=== PATIENT | male | born 1955 | race Hispanic/Latino ===

== ENCOUNTER 2020-02-20 | Emergency (ER) | payer SELFPAY ==
--- NOTE | 2020-02-20 19:29 | EDPHYS ---
Physician Documentation [facility] Name: Darrin Whiting Age: 64 yrs Sex: Male : 1955 Arrival Date: 02/20/2020 Time: 16:20 Bed Waiting Private MD: ED Physician Kalpesh Heck HPI: 02/19 19:33 This 64 yrs old Male presents to ER via Ambulatory with complaints of Ear Pain.kb 19:33 The patient presents with drainage, that is bloody, pain. The complaints affect the kb right ear. Onset: The symptoms/episode began/occurred 3 day(s) ago. Modifying factors: The symptoms are alleviated by nothing, the symptoms are aggravated by nothing. Associated signs and symptoms: The patient has no apparent associated signs or symptoms. Severity of symptoms: At their worst the symptoms were moderate in the emergency department the symptoms are unchanged. The patient has not experienced similar symptoms in the past. The patient has not recently seen a physician. Historical: - Allergies: 16:37 No Known Allergies; ss - PSHx: 16:37 right leg; ss - Social history:: Smoking status: Patient denies any tobacco usage or history of. ROS: 19:31 Constitutional: Negative for fever, chills, and weight loss, Cardiovascular: Negative kb for chest pain, palpitations, and edema, Respiratory: Negative for shortness of breath, cough, wheezing, and pleuritic chest pain, Abdomen/GI: Negative for abdominal pain, nausea, vomiting, diarrhea, and constipation, MS/Extremity: Negative for injury and deformity, Skin: Negative for injury, rash, and discoloration, Neuro: Negative for headache, weakness, numbness, tingling, and seizure. 19:31 ENT: Positive for drainage from ear(s), ear pain. Exam: 19:31 Constitutional: This is a well developed, well nourished patient who is awake, alert, kb and in no acute distress. Head/Face: Normocephalic, atraumatic. Chest/axilla: Normal chest wall appearance and motion. Nontender with no deformity. No lesions are appreciated. Cardiovascular: Regular rate and rhythm with a normal S1 and S2. No gallops, murmurs, or rubs. Normal PMI, no JVD. No pulse deficits. Respiratory: Lungs have equal breath sounds bilaterally, clear to auscultation and percussion. No rales, rhonchi or wheezes noted. No increased work of breathing, no retractions or nasal flaring. Abdomen/GI: Soft, non-tender, with normal bowel sounds. No distension or tympany. No guarding or rebound. No evidence of tenderness throughout. Skin: Warm, dry with normal turgor. Normal color with no rashes, no lesions, and no evidence of cellulitis. MS/ Extremity: Pulses equal, no cyanosis. Neurovascular intact. Full, normal range of motion. Neuro: Awake and alert, GCS 15, oriented to person, place, time, and situation. Cranial nerves II-XII grossly intact. Motor strength 5/5 in all extremities. Sensory grossly intact. Cerebellar exam normal. Normal gait. 19:31 ENT: External ear(s): are unremarkable, Ear canal(s): bloody discharge, that is minimal, in the right canal, erythema, that is moderate, of the right canal, swelling, that is moderate, of the right canal, TM's: not visable, because of blood. Vital Signs: 16:35 BP 165 / 97; Pulse 73; Resp 16; Temp 99.1(TE); Pulse Ox 99% on R/A; Weight 83.91 kg; ss Height 6 ft. 0 in. (185 cm); Pain 7/10; 16:35 Body Mass Index 24.52 (83.91 kg, 185 cm) ss MDM: 19:27 Patient medically screened. kb 19:31 Data reviewed: vital signs, nurses notes. Data interpreted: Pulse oximetry: on room air kb is 99 %. Interpretation: normal. Counseling: I had a detailed discussion with the patient and/or guardian regarding: the historical points, exam findings, and any diagnostic results supporting the discharge/admit diagnosis, the need for outpatient follow up, an ENT specialist, a family practitioner, to return to the emergency department if symptoms worsen or persist or if there are any questions or concerns that arise at home. Administered Medications: No medications were administered Disposition: 02/20 07:01 Co-signature as Attending Physician, Kalpesh Heck MD. rn Disposition: 02/20/20 19:27 Discharged to Home. Impression: Otitis media, unspecified, right ear, Other otitis externa, right ear. - Condition is Stable. - Discharge Instructions: Otitis Externa, Vysk-[id number], Otitis Media, Adult, [id number]-[id number], Ear Drops, Adult, [id number]-dz-Ikbh. - Prescriptions for Amoxicillin 875 mg Oral Tablet - take 1 tablet by ORAL route every 12 hours for 10 days; 20 tablet. Ciprodex 0.3- 0.1 % Otic Drops, Suspension - instill 4 drop by OTIC route every 12 hours for 7 days , for ears ONLY; 1 Container. - Medication Reconciliation Form, Thank You Letter, Antibiotic Education, Prescription Opioid Use form. - Follow up: Emergency Department; When: As needed; Reason: Worsening of condition. Follow up: Private Physician; When: 2 - 3 days; Reason: Recheck today's complaints, Continuance of care, Re-evaluation by your physician. Signatures: Myrna Mckeon, MELT ROOM OPERATOR-C MELT ROOM OPERATOR-CkKalpesh Vance MD MD rn SmirchSuzanne RN RN ss Nancy Jaime RN RN lp1 Corrections: (The following items were deleted from the chart) 02/19 19:37 19:27 02/20/2020 19:27 Discharged to Home. Impression: Otitis media, unspecified, right lp1 ear; Other otitis externa, right ear. Condition is Stable. Forms are Medication Reconciliation Form, Thank You Letter, Antibiotic Education, Prescription Opioid Use. Follow up: Emergency Department; When: As needed; Reason: Worsening of condition. Follow up: Private Physician; When: 2 - 3 days; Reason: Recheck today's complaints, Continuance of care, Re-evaluation by your physician. kb
--- NOTE | 2020-02-20 19:29 | ER ---
Nurse's Notes [facility] Name: Darrin Whiting Age: 64 yrs Sex: Male : 1955 Arrival Date: 02/20/2020 Time: 16:20 Bed Waiting Private MD: Diagnosis: Otitis media, unspecified, right ear;Other otitis externa, right ear Presentation: 02/19 16:35 Chief complaint: Patient states: R ear pain that began yesterday. Pt noticed the ear ss was bleeding today. Coronavirus screen: Client denies travel out of the [place] in the last 14 days. Ebola Screen: Patient denies exposure to infectious person. Patient denies travel to an Ebola-affected area in the 21 days before illness onset. Initial Sepsis Screen: Does the patient meet any 2 criteria? No. Patient's initial sepsis screen is negative. Does the patient have a suspected source of infection? No. Patient's initial sepsis screen is negative. Risk Assessment: Do you want to hurt yourself or someone else? Patient reports no desire to harm self or others. Onset of symptoms was February 19, 2020. 16:35 Method Of Arrival: Ambulatory ss 16:35 Acuity: BETHEL 4 ss Triage Assessment: 19:25 General: Appears in no apparent distress. Behavior is appropriate for age. Pain: lp1 Complains of pain in right ear. EENT: Reports pain in right ear. Respiratory: Respiratory effort is even, unlabored. Derm: Skin is pink, warm \T\ dry. Historical: - Allergies: 16:37 No Known Allergies; ss - PSHx: 16:37 right leg; ss - Social history:: Smoking status: Patient denies any tobacco usage or history of. Screenin:25 Abuse screen: Denies threats or abuse. Denies injuries from another. Nutritional lp1 screening: No deficits noted. Tuberculosis screening: No symptoms or risk factors identified. Fall Risk None identified. Assessment: 19:26 Reassessment: BINTA Norris assessing patient. lp1 Vital Signs: 16:35 BP 165 / 97; Pulse 73; Resp 16; Temp 99.1(TE); Pulse Ox 99% on R/A; Weight 83.91 kg; ss Height 6 ft. 0 in. (185 cm); Pain 7/10; 16:35 Body Mass Index 24.52 (83.91 kg, 185 cm) ED Course: 16:20 Patient arrived in ED. ag5 16:36 Triage completed. 16:37 Arm band placed on left wrist. 17:05 Myrna Mckeon FNP-C is [facility]. kb 17:05 Kalpesh Heck MD is Attending Physician. kb 19:26 No provider procedures requiring assistance completed. Patient did not have IV access lp1 during this emergency room visit. 19:27 Patient has correct armband on for positive identification. lp1 Administered Medications: No medications were administered Outcome: 19:27 Discharge ordered by . kb 19:37 Discharged to home ambulatory. lp1 19:37 Condition: good 19:37 Discharge instructions given to patient, Instructed on discharge instructions, follow up and referral plans. medication usage, Demonstrated understanding of instructions, follow-up care, medications, Prescriptions given X 2. 19:37 Patient left the ED. lp1 Signatures: Myrna Mckeon FNP-C FNP-Ckb Smirch, Shelby, RN RN Nancy Jaime RN RN lp1 Doyle Santos ag5
== END 2020-02-20 19:37 | disposition home or self-care (01) ==
CPT/HCPCS: 99282

== ENCOUNTER 2021-06-23 08:34 | Emergency (ER) | payer BC ==
--- OUTSIDE RECORDS SUMMARY | 2021-06-23 08:37 | XMS REPORT | Continuity of Care Document ---
:1955 Author Organization [facility] t Address [address] [place] [address] Care Team Providers Name Role Phone Radha Quispe NP Attending Clinician Problems Condition Condition Condition Status Onset Resolution Last Treating Co mments Source Name Details Category Date Date Treatment Clinician Date No known No known Disease Unive rs active active ity of problems problems [facility] Allergies, Adverse Reactions, Alerts Allergy Allergy Status Severity Reaction(s) Onset Inactive Treating Comm ents Source Name Type Date Date Clinician NO KNOWN Drug Active Univers ALLERGIE Class ity of [facility] Social History Social Habit Start Date Stop Date Quantity Comments Source Sex [facility]igned [facility] Exposure to SARS-CoV-2 Not sure [facility] [place] (event) [facility] Smoking Status Start Date Stop Date Source Unknown if ever smoked [facility] Medications Ordered Filled Start Stop Current Ordering Indication Dosage Frequency Signature Comments Components Source Medication Medication Date Date Medication? Clinician (SIG) Name Name dexamethaso 2020- No 10mg 10 mg, Uni vers ne 03-15 Intramuscu ity of (DECADRON 19:30: 18:50 lar, ONCE, [place] PHOSPHATE) 00 :00 1 dose, Medica l injection 03/15/20 Bran ch 10 mg at 1330, Routine cetirizine Yes [id number] 10mg Take 1 Univers 10 mg 03-15 08 tablet by ity of tablet 00:00: mouth [place] 00 daily. [facility] Branch methylPREDN Yes [id number] Take by Univers ISolone 4 03-15 08 mouth ity of mg tablets 00:00: SEE-INSTRU [place] 00 CTIONS. Medical follow Branch package directions Mannieovi 2020- No [id number] 1g Take 1 Univers r 1 gram 03-15 08 tablet by ity o f tablet 00:00: 05:59 mouth 3 [place] 00 :00 (three) Medical times Branch daily for 7 days. Vital Signs Vital Name Observation Time Observation Value Comments Source Systolic blood 2020-03-15 18:07:00 145 mm[Hg] Univer [facility] Diastolic blood 2020-03-15 18:07:00 83 mm[Hg] [facility] Heart rate 2020-03-15 18:07:00 69 /min [facility] Body temperature 2020-03-15 18:07:00 37.17 Eveline [facility] Respiratory rate 2020-03-15 18:07:00 18 /min [facility] Body weight 2020-03-15 18:07:00 79.379 kg [facility] Oxygen saturation in 2020-03-15 18:07:00 100 /min University of Arterial blood by [facility] Pulse oximetry Branch Systolic blood 2020-03-15 18:07:00 145 mm[Hg] Univer [facility] Diastolic blood 2020-03-15 18:07:00 83 mm[facility]Hg[facility] 2020-03-15 18:07:00 69 /min [facility] Body temperature 2020-03-15 18:07:00 37.17 Eveline [facility] Respiratory rate 2020-03-15 18:07:00 18 /min [facility] Body weight 2020-03-15 18:07:00 79.379 kg [facility] Oxygen saturation in 2020-03-15 18:07:00 100 /min [facility] Arterial blood by [facility] Pulse oximetry Branch Procedures Procedure Date / Time Performed Performing Clinician Ebonie e NOTICE OF PRIVACY 2020-03-15 17:41:47 Doctor Unassigned, No [facility] PRACTICES Name Medical Branch CONSENT/REFUSAL FOR 2020-03-15 17:41:21 Doctor Unassigned, No [facility] DIAGNOSIS AND Name Medical Branch TREATMENT Encounters Start End Encounter Admission Attending Care Care Encounter Source Date/Time Date/Time Type Type Clinicians Facility Department ID 2020-03-15 2020-03-15 Emergency [facility] [id number] Univers 12:08:00 13:00:00 Yolanda Mi [id number] ity [facility] [id number] [facility] [id number] [place] [id number] Branch 2020-03-15 2020-03-15 Emergency [facility] [id number] 12:08:00 13:00:00 Yolanda Mi [id number] [place] [id number] [place] [id number] 2020-03-15 2020-03-15 Emergency X [facility] ERT [id number] Univers 11:42[facility] Results This patient has no known results.
[2021-06-23] MEDS ORDERED: DIAZEPAM 5 MG TABLET ONE (09:09)
[2021-06-23] MEDS ORDERED: KETOROLAC 30 MG/ML INJ ONE (09:09)
--- NOTE | 2021-06-23 09:46 | RAD REPORT ---
EXAM DESCRIPTION: CT - [id number] - 06/23/2021 9:29 am CLINICAL HISTORY: trauma COMPARISON: No comparisons TECHNIQUE: Axial 5 mm thick images of the head were obtained. Axial 2 mm thick images of the cervical spine were obtained with sagittal and coronal reconstruction images generated and reviewed. All CT scans are performed using dose optimization technique as appropriate and may include automated exposure control or mA/KV adjustment according to patient size. FINDINGS: CT HEAD WITHOUT CONTRAST: No acute hemorrhage, hydrocephalus or extra-axial collection is identified.No areas of brain edema or midline shift. The paranasal sinuses and mastoids are clear.The calvarium is intact. CT CERVICAL SPINE WITHOUT CONTRAST: No fracture or subluxation.No prevertebral soft tissues swelling is identified. Multilevel cervical s pondylosis with varying degrees of neural foraminal narrowing. At least mild central spinal stenosis is present at the C4-5 and C5-6 level. Neural foraminal narrowing is severe at the C5-6 level bilater ally. There is moderate to severe at C4-5 and C6-7. IMPRESSION: No acute intracranial or cervical spine findings. Incidental findings including moderate cervical spondylosis and evidence of both neural foraminal chi rowing and central spinal stenosis as noted above.
--- NOTE | 2021-06-23 09:49 | ER ---
Nurse's Notes [facility] Name: Darrin Whiting Age: 66 yrs Sex: Male : 1955 Arrival Date: 06/23/2021 Time: 08:37 Bed 13 Private MD: Diagnosis: Radiculopathy, cervical region;Unspecified injury of head, initial encounter Presentation: 06/23 08:40 Chief complaint: Patient states: Gretchen fell on top of head at work a week ago. Pt ss reports he felt ok, but since yesterday the L side of his neck hurts and his ROM is decreased. Coronavirus screen: Client denies travel out of the [place] in the last 14 days. Ebola Screen: Patient denies exposure to infectious person. Patient denies travel to an Ebola-affected area in the 21 days before illness onset. Initial Sepsis Screen: Does the patient meet any 2 criteria? No. Patient's initial sepsis screen is negative. Does the patient have a suspected source of infection? No. Patient's initial sepsis screen is negative. Risk Assessment: Do you want to hurt yourself or someone else? Patient reports no desire to harm self or others. Onset of symptoms was June 22, 2021. 08:40 Method Of Arrival: Ambulatory ss 08:40 Acuity: BETHEL 4 ss Triage Assessment: 09:10 General: Appears in no apparent distress. ph Historical: - Allergies: 08:44 No Known Allergies; ss - PMHx: 08:44 hypertension; ss - PSHx: 08:44 R leg; ss - Immunization history:: Client reports receiving the 2nd dose of the Covid vaccine. - Social history:: Smoking status: Patient denies any tobacco usage or history of. Screenin:52 Abuse screen: Denies threats or abuse. Denies injuries from another. Nutritional ph screening: No deficits noted. Tuberculosis screening: No symptoms or risk factors identified. 09:10 Fall Risk None identified. ph Assessment: 08:50 General: Appears in no apparent distress. comfortable, well groomed, Behavior is calm, ph cooperative, appropriate for age. Pain: Complains of pain in left posterior aspect of neck and left lateral aspect of neck. Neuro: Level of Consciousness is awake, alert, obeys commands, Oriented to person, place, time, situation, Reports blurred vision. Cardiovascular: Capillary refill < 3 seconds in bilateral fingers Patient's skin is warm and dry. Respiratory: Airway is patent Respiratory effort is even, unlabored. Derm: Skin is intact, is healthy with good turgor, Skin is pink, warm \T\ dry. Musculoskeletal: Circulation, motion, and sensation intact. Range of motion: intact in all extremities. Vital Signs: 08:40 BP 157 / 91; Pulse 63; Resp 16; Temp 98.8; Pulse Ox 99% ; Weight 77.11 kg; Height 5 ft. ss 5 in. (165.10 cm); Pain 8/10; 08:40 Body Mass Index 28.29 (77.11 kg, 165.10 cm) ss ED Course: 08:37 Patient arrived in ED. mr 08:43 Triage completed. ss 08:44 Arm band placed on right wrist. 08:45 Momo Saxena PA is PHCP. [facility] 08:45 Mehul Jean DO is Attending Physician. [facility] 08:50 Stephanie Covarrubias, MARLENE is Primary Nurse. ph 09:10 Patient has correct armband on for positive identification. Bed in low position. Call ph light in reach. 09:31 CT Head C Spine In Process Unspecified. EDMS 10:05 No provider procedures requiring assistance completed. Patient did not have IV access ph during this emergency room visit. Administered Medications: 09:09 Drug: Ketorolac 30 mg Route: IM; Site: right deltoid; ph 10:00 Follow up: Response: No adverse reaction ph 09:56 Drug: Valium (diazepam) 5 mg Route: PO; iw 10:15 Follow up: Response: No adverse reaction; RASS: Alert and Calm (0) ph Medication: 09:10 VIS not applicable for this client. ph Outcome: 09:49 Discharge ordered by MD. jmm 10:08 Patient left the ED. ph 10:08 Discharged to home ambulatory, with family. ph 10:08 Condition: good 10:08 Discharge instructions given to patient, family, Instructed on discharge instructions, follow up and referral plans. medication usage, Demonstrated understanding of instructions, follow-up care, medications, Prescriptions given X 2. Signatures: Dispatcher [employer] EDMS Momo Saxena PA PA jmm Rivera, Mary Tiera Villalpando RN RN iw Smirch, Shelby, RN RN ss Hall Stephanie, RN RN ph
--- NOTE | 2021-06-23 09:49 | EDPHYS ---
Physician Documentation [facility] Name: Darrin Whiting Age: 66 yrs Sex: Male : 1955 Arrival Date: 06/23/2021 Time: 08:37 Bed 13 Private MD: ED Physician Mehul Jean Historical: - Allergies: 06/23 08:44 No Known Allergies; ss - PMHx: 08:44 hypertension; ss - PSHx: 08:44 R leg; ss - Immunization history:: Client reports receiving the 2nd dose of the Covid vaccine. - Social history:: Smoking status: Patient denies any tobacco usage or history of. Vital Signs: 08:40 BP 157 / 91; Pulse 63; Resp 16; Temp 98.8; Pulse Ox 99% ; Weight 77.11 kg; Height 5 ft. ss 5 in. (165.10 cm); Pain 8/10; 08:40 Body Mass Index 28.29 (77.11 kg, 165.10 cm) ss MDM: 08:52 Patient medically screened. [facility] 09:48 Data reviewed: vital signs, nurses notes. Counseling: I had a detailed discussion with rodney the patient and/or guardian regarding: the historical points, exam findings, and any diagnostic results supporting the discharge/admit diagnosis, radiology results, the need for outpatient follow up, to return to the emergency department if symptoms worsen or persist or if there are any questions or concerns that arise at home. 06/23 08:53 Order name: CT Head C Spine; Complete Time: 09:48 [facility] Administered Medications: 09:09 Drug: Ketorolac 30 mg Route: IM; Site: right deltoid; ph 10:00 Follow up: Response: No adverse reaction ph 09:56 Drug: Valium (diazepam) 5 mg Route: PO; iw 10:15 Follow up: Response: No adverse reaction; RASS: Alert and Calm (0) ph Disposition: 22:06 Co-signature as Attending Physician, Mehul Jean DO I was immediately available on-site ms3 in the Emergency Department for consultation in the care of the patient.. Disposition Summary: 06/23/21 09:49 Discharge Ordered Location: Home [facility] Condition: Stable [facility] Diagnosis - Radiculopathy, cervical region jmm - Unspecified injury of head, initial encounter [facility] Followup: jmm - With: Private Physician - When: 2 - 3 days - Reason: Recheck today's complaints, Continuance of care, Re-evaluation by your physician Discharge Instructions: - Cervical Radiculopathy [facility] - Discharge Summary Sheet ph Forms: - Medication Reconciliation Form [facility] - Thank You Letter [facility] - Work release form ph - Antibiotic Education [facility] - Prescription Opioid Use [facility] Prescriptions: - Ultracet 37.5-325 mg Oral Tablet - take 1 tablet by ORAL route every 6 hours - for up to 5 days; do not exceed 8 jmm tablets per day.; 12 tablet; Refills: 0, Product Selection Permitted - Zanaflex 4 mg Oral Tablet - take 1 tablet by ORAL route every 8 hours As needed; 20 tablet; Refills: 0, jm Product Selection Permitted Signatures: Dispatcher [employer] Momo Hernandez PA PA [facility] Tiera Villalpando RN Suzanne Anne RN RN ss Hall, Patricia, RN RN ph Sims, Marcus, DO DO ms3
[2021-06-23 10:33] VITALS: BP 157/91; TEMP 98.8; O2SAT 99
== END 2021-06-23 10:08 | disposition home or self-care (01) ==
LOC: ER 08:34
DX: M54.12 Radiculopathy, cervical region (principal); S09.90XA Unspecified injury of head, initial encounter; I10 Essential (primary) hypertension
CPT/HCPCS: 70450; 72125; 96372; 99283

== ENCOUNTER 2022-06-21 22:03 | Inpatient (IN) | payer BC ==
--- OUTSIDE RECORDS SUMMARY | 2022-06-21 22:07 | XMS REPORT | Continuity of Care Document ---
:1955 Author Organization [facility] t Address [address] [facility] [address] [place] [address] Support Name Relationship Address Phone Yayo Briceño Unavailable [address] [facility] [phone] [place] [address] Aimee Hilario Spouse [address] [phone] [place] [address] L Yayo Hilario Un[place] [address] [address] [address] [place] [address] NONE, OTHER OT [address] [phone] [place] [address] Care Team Providers Name Role Phone Ella Castañeda Attending Clinician Unavailable Zain Salomon Attending Clinician Unavailable Miley Bowen Attending Clinician Unavailable Yolanda Quispe NP Attending Clinician Miley Bowen Admitting Clinician Unavailable Payers Payer Name Policy Type Policy Number Effective Date Expiration Date claude Blue Cross 6 [id number] 2021 Common Spiri t Blue Shield of 00:00:00 - [facility] On license of [facility] Problems Condition Condition Condition Status Onset Resolution Last Treating Co mments Source Name Details Category Date Date Treatment Clinician Date [id number] Allergic Problem Commo n rhinitis, Spirit unspecifie [facility] d trigger [id number] Primary Problem Common hypertensi Spirit on - [facility] [id number] Constipati Problem Com mon on, Spirit unspecifie - [facility]I d [facility] constipati [facility] [id number] Gastroesop Problem Co mmon hageal Spirit reflux - [facility] disease, [facility] unspecifie [facility] whether Medical esophagiti Center s present No known No known Disease Unive rs active active ity of problems problems [facility] Allergies, Adverse Reactions, Alerts Allergy Allergy Status Severity Reaction(s) Onset Inactive Treating Comm ents Source Name Type Date Date Clinician No Known DA Active U 2021-02 [facility] Allergie 0-25 Clear s 00:00: Alberto 00 [facility] NO KNOWN Drug Active Univers ALLERGIE Class ity of S [facility] Social History Social Habit Start Date Stop Date Quantity Comments Source History of Tobacco Use Co mmon [facility] Sex Assigned At Com mon [facility] Exposure to SARS-CoV-2 Not sure Un [facility] Smoking Status Start Date Stop Date Source Never Smoker Common [facility] Unknown if ever smoked [facility] Medications Ordered Filled Start Stop Current Ordering Indication Dosage Frequency Signature Comments Components Source Medication Medication Date Date Medication? Clinician (SIG) Name Name Cetirizine Cetirizine No 1{table Cetirizine HCl 10 MG HCl 10 MG 8-16 t} HCl 10 MG 00:00: 00 Flonase 50 Flonase 50 No 2{spray QD Flonase 50 MCG/ACT MCG/ACT 8-16 _in_eac MCG/ACT 00:00: h_nostr 00 il} Cetirizine Cetirizine No 1{table Cetirizine HCl 10 MG HCl 10 MG 8-16 t} HCl 10 MG 00:00: 00 Flonase 50 Flonase 50 No 2{spray QD Flonase 50 MCG/ACT MCG/ACT 8-16 _in_eac MCG/ACT 00:00: h_nostr 00 il} dexamethaso No 10mg 10 mg, Uni vers ne 03-15 Intramuscu ity of (DECADRON 19:30: 18:50 lar, ONCE, [place] PHOSPHATE) 00 :00 1 dose, Medica l injection 03/15/20 Bran ch 10 mg at 1330, Routine cetirizine Yes [id number] 10mg Take 1 Univers 10 mg 03-15 08 tablet by ity of tablet 00:00: mouth [place] 00 daily. Medical Branch methylPREDN Yes [id number] Take by Univers ISolone 4 03-15 08 mouth ity of mg tablets 00:00: SEE-INSTRU [place] 00 CTIONS. Medical follow Branch package directions valACYclovi 202- No [id number] 1g Take 1 Univers r 1 gram 03-15 08 tablet by ity o f tablet 00:00: 05:59 mouth 3 [place] 00 :00 (three) Medical times Branch daily for 7 days. Losartan Losartan No 1{table QD Losartan Potassium Potassium t} Potassium 50 MG 50 MG 50 MG Lovastatin Lovastatin No QD Lovastatin 20 MG 20 MG 20 MG Losartan Losartan No 1{table QD Losartan Potassium Potassium t} Potassium 50 MG 50 MG 50 MG Lovastatin Lovastatin No QD Lovastatin 20 MG 20 MG 20 MG Vital Signs Vital Name Observation Time Observation Value Comments Source height 2021-09-27 16:20:00 65.00 [in_i] [facility] weight 2021-09-27 16:20:00 173.8 [lb_av] [facility] temperature 2021-09-27 16:20:00 97.9 [degF] [facility] bmi 2021-09-27 16:20:00 28.92 kg/m2 [facility] oximetry 2021-09-27 16:20:00 97 % [facility] respiratory rate 2021-09-27 16:20:00 15 /min Comm on [facility] blood pressure 2021-09-27 16:20:00 139 mm[Hg] Common [facility] - systolic [facility] blood pressure 2021-09-27 16:20:00 69 mm[Hg] Common [facility] - diastolic [facility] Systolic blood 2020-03-15 18:07:00 145 mm[Hg] Univer sity of pressure [facility] Diastolic blood 2020-03-15 18:07:00 83 mm[Hg] Unive rsity of pressure [facility] Heart rate 2020-03-15 18:07:00 69 /min Universi ty [facility] Body temperature 2020-03-15 18:07:00 37.17 Eveline [facility] Respiratory rate 2020-03-15 18:07:00 18 /min [facility] Body weight 2020-03-15 18:07:00 79.379 kg Universi ty [facility] Oxygen saturation in 2020-03-15 18:07:00 100 /min University of Arterial blood by [facility] Pulse oximetry Branch Systolic blood 2020-03-15 18:07:00 145 mm[Hg] Univer sity of pressure [facility] Diastolic blood 2020-03-15 18:07:00 83 mm[Hg] Unive rsity of pressure [facility] Heart rate 2020-03-15 18:07:00 69 /min Universi [facility] Body temperature 2020-03-15 18:07:00 37.17 Eveline [facility] Respiratory rate 2020-03-15 18:07:00 18 /min [facility] Body weight 2020-03-15 18:07:00 79.379 kg Universi ty [facility] Oxygen saturation in 2020-03-15 18:07:00 100 /min University of Arterial blood by [facility] Pulse oximetry Branch Procedures Procedure Date / Time Performed Performing Clinician Alison schulz [id number] 2021-12-08 00:00:00 [facility]TH [facility] [id number] 2021-12-08 00:00:00 VOLTH [facility] [id number] 2021-12-08 00:00:00 VOLTH [facility] [id number] 2021-12-08 00:00:00 DAFTA [facility] [id number] 2021-12-08 00:00:00 VOLTH [facility] NOTICE OF PRIVACY 2020-03-15 17:41:47 Doctor Unassigned, No [facility] Name Medical Branch CONSENT/REFUSAL FOR 2020-03-15 17:41:21 Doctor Unassigned, No [facility] DIAGNOSIS AND Name Medical Branch TREATMENT Encounters Start End Encounter Admission Attending Care Care Encounter Source Date/Time Date/Time Type Type Clinicians Facility Department ID 2022-01-09 Outpatient Castañeda, Na STLMLC STLMLC [id number] 2 Common 11:29:04 [facility] 2021-12-21 Outpatient Castañeda, Na STLMLC STLMLC [id number] Common 13:37:04 [facility] 2021-11-18 Outpatient Castañeda, Na STLMLC STLMLC [id number] 2 Common 09:52:05 [facility] 2021-09-27 Outpatient Castañeda, Na STLMLC STLMLC [id number] 2 Common 16:00:03 [facility] 2021-12-19 2021-12-19 (TEL) STLMLC STLMLC [id number] Co mmon 00:00:00 00:00:00 [facility] 2021-12-12 2021-12-12 Emergency EM Aime, HCACL PITA [id number] [facility] 17:11:00 21:09:00 Zain 06 [facility] 2021-12-08 2021-12-11 Inpatient EL Jessi HCACL GENS [id number] [facility] 05:24:00 14:16:00 , Miley 75 Cl [facility] 2021-09-27 2021-09-27 OFFICE STLMLC STLMLC [id number] Co mmon 00:00:00 00:00:00 VISIT [facility] LEVEL 4 [facility] 2020-03-15 2020-03-15 Emergency [facility] [id number] 12:08:00 13:00:00 Yolanda Garcia [place] [id number] [place] [id number] [place] [address] [id number] [facility] 2020-03-15 2020-03-15 Emergency [facility] [id number] [facility] 12:08:00 13:00:00 Yolanda Garcia [place] [id number] ity of [place] [id number] [facility] [id number] [place] [address] Branch 2020-03-15 2020-03-15 Emergency X [facility] ERT [id number] Univers 11:42:00 11:42:00 [facility] Results Test Description Test Time Test Comments Results Result Comments Source BASIC METABOLIC PANEL 2021-12-12 20:40:00 Test Item Value Reference Range Interpretation Comme nts SODIUM (test code = NA) 133 mEq/L 134-147 L POTASSIUM (test code = K) 3.9 mEq/L 3.4-5.0 N CHLORIDE (test code = CL) 98 mEq/L 100-108 L CARBON DIOXIDE (test code = CO2) 27 mEq/l 21-33 N ANION GAP (test code = GAP) 11 0-20 N GLUCOSE (test code = GLU) 116 mg/dL 70-110 H BLOOD UREA NITROGEN (test code = 11 mg/dL 7-18 N BUN) GLOMERULAR FILTRATION RATE (test 85.0 80-90 N Units of measure = ml/min/1.73 code = GFR) m2 CREATININE (test code = CREAT) 0.9 mg/dL 0.6-1.3 N CALCIUM (test code = CA) 9.5 mg/dL 8.0-10.5 N HEPATIC FUNCTION [id number] 20:40:00 Test Item Value Reference Range Interpretation Comments TOTAL PROTEIN (test code = PROT) 7.6 g/dL 6.4-8.2 N ALBUMIN (test code = ALB) 3.90 g/dL 3.4-5.0 N BILIRUBIN TOTAL (test code = BILT) 1.20 mg/dL 0.0-1.0 H BILIRUBIN DIRECT (test code = 0.40 MG/DL 0.0-0.30 H BILD) SGOT/AST (test code = AST) 74 IUnit/L 15-37 H SGPT/ALT (test code = ALT) 60 IUnit/L 30-65 N ALKALINE PHOSPHATASE TOTAL (test 95 IUnit/L 20-125 N code = ALKP) BILIRUBIN INDIRECT (test code = 0.80 MG/DL BILIND) [id number] 20:40:00 Test Item Value Reference Range Interpretation Comments LIPASE (test code = LIP) 31 U/L 13-57 N TROP-I HIGH [id number] 20:40:00 Test Item Value Reference Range Interpretation Comments TROP-I HIGH < 3 ng/L 0-54 N CAUTION: Units of the SENSITIVITY (test current te st methodology code = TROPIHS) (ng/L) diffe rfrom the prior test meth odology (ng/mL) by a fa ctor of 1000. 99t h Percentile Uppe r Reference Limit (URL): Fe males: 34 ng/LMales: 54 n g/L In order to distin guish acute elevations of h igh sensitivitytrop onin from other clinical conditions, the FourthUnive rsal Definition of M yocardial Infarction stressesclinica l assessment and the demonstration o f a rise and/orfall in s erial troponin result s above the URL. These resu lts were obtained using Siemens AtellTake the Interview IM TnI Hreagent. Results from di fferent methodologies s hould not becompared to o ne another as quantitative results and URLs mayvar y by method. UA RFLX MICR CULT IF [id number] 20:26:00 Test Item Value Reference Range Interpretation Comments UA COLOR (test code = COLU) BOOM YEL/STRAW A UA APPEARANCE (test code = SL CLOUDY CLEAR APPU) UA GLUCOSE DIPSTICK (test code NEGATIVE NEGATIVE = DGLUU) UA BILIRUBIN DIPSTICK (test NEGATIVE NEGATIVE code = BILU) UA KETONE DIPSTICK (test code TRACE NEGATIVE A = KETU) UA SPECIFIC GRAVITY (test code 1.019 1.005-1.030 N = SGU) UA BLOOD DIPSTICK (test code = 1+ NEGATIVE A OSORIO) UA PH DIPSTICK (test code = 5.0 5.0-7.0 N JULIO) UA PROTEIN DIPSTICK (test code 2+ NEGATIVE A = PROU) UA UROBILINIOGEN DIPSTICK 0.2 mg/dL 0.2-1.0 (test code = URO) UA NITRITE DIPSTICK (test code NEGATIVE NEGATIVE = ANTONIO) UA LEUKOCYTE ESTERASE DIPSTICK NEGATIVE NEGATIVE (test code = LEUU) UA WBC (test code = WBCU) 0-3 WBC/HPF 0-3 UA RBC (test code = RBCU) 4-10 RBC/HPF 0-3 UA WBC NO REFLEX (test code = 0-3 WBC/HPF 0-3 WBCUCL) UA BACTERIA (test code = BACU) NONE SEEN /HPF NONE SEEN UA SQUAMOUS CELLS (test code = 0-5 /HPF NONE SEEN SQU) UA MUCUS (test code = MUCU) 4+ /LPF NONE SEEN A Indication for culture: Suprapubic PainSpecimen Description: Clean CatchCBC W/AUTO [id number] 20:22:00 Test Item Value Reference Range Interpretation Comments WHITE BLOOD CELL (test code = 10.4 x10 3/uL 4.5-11.0 WBC) RED BLOOD CELL (test code = 4.51 x10 6/uL 4.00-5.60 N RBC) HEMOGLOBIN (test code = HGB) 14.0 g/dL 12.5-16.9 N HEMATOCRIT (test code = HCT) 41.5 % 37.5-50.7 N MEAN CELL VOLUME (test code = 92.0 fL 81.0-99.0 N MCV) MEAN CELL HGB (test code = MCH) 31.0 pg 27.0-33.0 N MEAN CELL HGB CONCETRATION 33.7 g/dL 33.0-37.0 N (test code = MCHC) RED CELL DISTRIBUTION WIDTH CV 12.4 % 11.5-14.5 N (test code = RDW) RED CELL DISTRIBUTION WIDTH SD 42.0 fL 37.0-54.0 N (test code = RDW-SD) PLATELET COUNT (test code = 281 x10 3/uL 150-400 N PLT) MEAN PLATELET VOLUME (test code 10.2 fL 7.0-9.0 H = MPV) NEUTROPHIL % (test code = NT%) 82.5 % 56.0-77.0 H IMMATURE GRANULOCYTE % (test 0.3 % 0.0-2.0 N code = IG%) LYMPHOCYTE % (test code = LY%) 6.6 % 14.0-32.0 L MONOCYTE % (test code = MO%) 8.4 % 4.8-9.0 N EOSINOPHIL % (test code = EO%) 1.8 % 0.3-3.7 N BASOPHIL % (test code = BA%) 0.4 % 0.0-2.0 N NUCLEATED RBC % (test code = 0.0 % 0-0 N NRBC%) NEUTROPHIL # (test code = NT#) 8.59 x10 3/uL 2.0-7.6 H IMMATURE GRANULOCYTE # (test 0.03 x10 3/uL 0.00-0.03 N code = IG#) LYMPHOCYTE # (test code = LY#) 0.69 x10 3/uL 1.0-3.8 L MONOCYTE # (test code = MO#) 0.88 x10 3/uL 0.1-0.8 H EOSINOPHIL # (test code = EO#) 0.19 x10 3/uL 0.0-0.2 N BASOPHIL # (test code = BA#) 0.04 x10 3/uL 0.0-0.2 N NUCLEATED RBC # (test code = 0.00 x10 3/uL 0.0-0.1 N NRBC#) MANUAL DIFF REQUIRED (test code NO = MDIFF) [id number] 11:59:00 Test Item Value Reference Range Interpretation Comments SURGICAL (test code = SR) R UN DATE: 12/12/21 [place] [facility] PAGE 1 RUN TIME: 1159 Specimen Inquiry RUN USER: INTERFACE P ATIENT: YAYO MAK LOC: [facility] U #: [id number] AGE/SX: 66/M ROOM: [address]: 12/08/21REG DR: Miley Bowen : 59 BED: 1 DIS: 12/11/21 STATUS: DIS IN TLOC: SPEC #: [id number] RECD: 12/09/21 STATUS: ROLANDO GARFIELD #: [id number] VITALY: 12/08/21- SUBM DR: Miley Bowen MD ENTERED: 12/09/21 SP TYPE: SURGICAL OTHR DR: ORDERED: 12089, ANATOMIC SPEC PROCEDURES: [id number] (12/09/21) TISSUES: A. SIGMOID COLON - PROXIMAL RECTUM RINGS ADDITIONAL RECTAL STUMP CLINICAL HISTORY SAME FINAL DIAGNOSIS Large intestine, rectosigmoid colon, partial excision:Diverticulosis with diverticulitis; viable margins of resection. GROSS DESCRIPTION Received in formalin labeled "sigmoid colon, proximal rectum , 2 anastomotic rings,additional rectal stump "include a segment of partial colectomy specimen withoutorientation (28 cm in length, 3.5 cm in diameter), shorter segment of partial colectomyspecimen without orientation (10 cm in length, 3 cm in diameter), 2 anastomotic ringswithout orientation (1 cm in length each). The serosa is felipe glistening. The mucosa istan-pink with multiple diverticula, without mass, ulcer, or polypoid lesion. Management Lecturer sections submitted: (A) margins of resection; (B)-(F) diverticula. Technical component performed at [address], [place] [address] Unless gross only, the diagnosis is based upon microscopic examination.Immunohistochemistr y: This test was developed and its performance characteristicsdetermined by this laboratory. It has not been approved nor does it need approvalby the [place] FDA. Appropriate positive and negative controls are reviewed and judgedto be acceptable. This laboratory is certified under the Clinical Laboratory ImprovementAmendments (CLIA-88) as qualified to perform high complexity clinical laboratory testing. CLINICAL INFORMATION DIVERTICULITIS CONTINUED ON NEXT PAGE R UN DATE: 12/12/21 [place] - LAB PAGE 2 RUN TIME: 1159 Specimen Inquiry RUN USER: INTERFACE S [place]IVER #: [id number] PATIENT: ESA CASANOVAYAYO #[id number] (Continued) Signed SIGNATURE ON FILE Viviana Rosales 12/12/21 1159 END OF REPORT - CT ABD PELVIS W/O [id number] 00:00:00 [facility] ESA QUINTANILLALORalph YAYO CALLAWAY : 1955 Sex: M Name: YAYO MAK [facility] : 1955 Age/S: 66 / M [address] [place] [address] Unit #: [id number] Loc: [place] [address] Phys: Hue Moran Acct: [id number] Dis Date: Status: [facility] ER PHONE #: [phone] Exam Date: 12/12/20211931 FAX #: [phone] Reason:ABD PAIN S/P COLECTOMY EXAMS: CPT CODE: [id number] CT ABD PELVIS W/O CONT 02787 PROCEDURE INFORMATION: Exam: CT Abdomen And Pelvis Without Contrast Exam date and time: 12/12/2021 7:28 PM Age: 66 years old Clinical indication: Other: Abd pain S/P colectomy TECHNIQUE: Imaging protocol: Computed tomography of the abdomen and pelvis without contrast. Radiation optimization: All CT scans at this facility use at least one of these dose optimization techniques: automated exposure control; mA and/or kV adjustment per patient size (includes targeted exams where dose is matched to clinical indication); or iterative reconstruction. COMPARISON: DX XR CHEST 2 V 12/06/2021 2:31 PM FINDINGS: Lungs: There is atelectasis within the lungs. Liver: The liver demonstrates punctate calcification, consistent with remote granulomatous organism exposure. Gallbladder and bile ducts: Normal. No calcified stones. No ductal dilation. Pancreas: Normal. No ductal dilation. Spleen: Normal. No splenomegaly. Adrenal glands: Normal. No mass. Kidneys and ureters: There are simple fluid density bilateral renal lesions that are pr esumably cysts and require no specific additional imaging follow-up. There is no hydronephrosis or acute renal process. Stomach and bowel: There is surgical change of partial left hemicolectomy. There is surgical anastomosis at the rectosigmoid junction. There is no bowel obstruction. Appendix: The appendix is normal. Intraperitoneal space: There is a small amount of peritoneal and retroperitoneal gas. There is a given history of recent colectomy. The gas could be postoperative but I cannot exclude the possibility of bowel leak. There is hazy mild opacity in mesentery that may be edema or mesenteritis. There is no peritoneal abscess . There is a trace amount of hyperdense fluid in the right pericolic gutter suggesting minimal hemoperitoneum (approximately 2 mL). Vasculature: There are mild calcifications of the aorta. There is no aortic aneurysm or acute process. Lymph nodes: Unremarkable. No enlarged lymph nodes. Urinary bladder: There is gas in the urinary bladder lumen. There is mild urinarybladder wall thickening. There is under distention of the urinary bladder. The findings could be dueto recent PAGE 1 Signed Report (CONTINUED) Name: YAYO MAK [facility] :1955 Age/S: 66 / M [address] [place] [address] Unit #: [id number] Loc: [place] [address] Phys: Gall ego,Hue PA Acct: [id number] Dis Date: Status: REG ER PHONE #: [phone] Exam Date: 12/12/20211931 FAX #: [phone] Reason: ABD PAIN S/P COLECTOMY EXAMS: CPT CODE: [id number] CT ABD PELVIS W/O CONT 74992 (Continued) instrumentation, spasm and under distention but I cannot exclude acute cystitis and urinary tract infection. Reproductive: Unremarkable as visualized. Bones/joints: Unremarkable. No acute fracture. Soft tissues: Unremarkable. IMPRESSION: 1. There is a small amount of peritoneal and retroperitoneal gas. There is a given history of recent colectomy. The gas could be postoperative but I cannot exclude the possibility of bowel leak. There is hazy mild opacity in mesentery that may be edema or mesenteritis. There is no peritoneal abscess . There is a trace amount of hyperdense fluid in the right pericolic gutter suggesting minimal hemoperitoneum (approximately 2 mL). 2. There is surgical change of partial left hemicolectomy. There is surgical anastomosis at the rectosigmoid junction. There is no bowel obstruction. 3. There is gas in the urinary bladder lumen. There is mild urinary bladder wall thickening. There is under distention of the urinary bladder. The findings could be due to recent instrumentation, spasm and under distention but I cannot exclude acute cystitis andurinary tract infection. COMMENTS: Consistent with the [place] [employer]'s Incidental Findings Committee white paper (J Am Vitaly Radiol 2018): Any incidental renal lesion less than 1 cm or classified as too small to characterize, or any incidental cystic renal lesion characterized as simple- appearing, is likely benign. No follow-up imaging is recommended for these lesions per consensus recommendations based on imaging criteria. at 2013 Reported and signed by: Juancho Guerrero D.O. CC: Hue VALENZUELA; Zain Salomon MD; Miley Bowen MD Technologist:RT Te(R)(CT) CTDI: DLP: Trnscb Date/Time: 12/12/2021 (2013) [id number] Orig Print D/T: S: 12/12/2021 (2013) PAGE 2 Signed ReportBASIC METABOLIC [id number] 07:38:00 Test Item Value Reference Range Interpretation Comments SODIUM (test code = NA) 138 mEq/L 134-147 N POTASSIUM (test code = 3.8 mEq/L 3.4-5.0 N K) CHLORIDE (test code = 104 mEq/L 100-108 N CL) CARBON DIOXIDE (test 27 mEq/l 21-33 N code = CO2) ANION GAP (test code = 11 0-20 N GAP) GLUCOSE (test code = 112 mg/dL 70-110 H GLU) BLOOD UREA NITROGEN 10 mg/dL 7-18 N (test code = BUN) GLOMERULAR FILTRATION 97.3 80-90 H Units of measure = RATE (test code = GFR) ml/mi n/1.73 m2 CREATININE (test code = 0.8 mg/dL 0.6-1.3 N CREAT) CALCIUM (test code = 8.8 mg/dL 8.0-10.5 N CA) [id number] 07:38:00 Test Item Value Reference Range Interpretation Comments PHOSPHOROUS (test code = PHOS) 3.0 MG/DL 2.5-4.9 N [id number] 07:38:00 Test Item Value Reference Range Interpretation Comments MAGNESIUM (test code = MAG) 1.75 mg/dL 1.80-2.40 L CALCIUM [id number] 07:38:00 Test Item Value Reference Range Interpretation Comments CALCIUM IONIZED (test code = UMER) 1.11 MMOL/L 1.09-1.30 N HGB [id number] 07:33:00 Test Item Value Reference Range Interpretation Comments HEMOGLOBIN (test code = HGB) 14.7 g/dL 12.5-16.9 N HEMATOCRIT (test code = HCT) 43.0 % 37.5-50.7 N BASIC METABOLIC [id number] 07:01:00 Test Item Value Reference Range Interpretation Comments SODIUM (test code = NA) 138 mEq/L 134-147 N POTASSIUM (test code = 3.6 mEq/L 3.4-5.0 N K) CHLORIDE (test code = 102 mEq/L 100-108 N CL) CARBON DIOXIDE (test 30 mEq/l 21-33 N code = CO2) ANION GAP (test code = 10 0-20 N GAP) GLUCOSE (test code = 138 mg/dL 70-110 H GLU) BLOOD UREA NITROGEN 9 mg/dL 7-18 (test code = BUN) GLOMERULAR FILTRATION 85.0 80-90 N Units of measure = RATE (test code = GFR) ml/mi n/1.73 m2 CREATININE (test code = 0.9 mg/dL 0.6-1.3 N CREAT) CALCIUM (test code = 9.0 mg/dL 8.0-10.5 N CA) BASIC METABOLIC [id number] 13:37:00 Test Item Value Reference Range Interpretation Comments SODIUM (test code = NA) 139 mEq/L 134-147 N POTASSIUM (test code = 4.4 mEq/L 3.4-5.0 N K) CHLORIDE (test code = 105 mEq/L 100-108 N CL) CARBON DIOXIDE (test 28 mEq/l 21-33 N code = CO2) ANION GAP (test code = 11 0-20 N GAP) GLUCOSE (test code = 95 mg/dL 70-110 N GLU) BLOOD UREA NITROGEN 13 mg/dL 7-18 N (test code = BUN) GLOMERULAR FILTRATION 97.3 80-90 H Units of measure = RATE (test code = GFR) ml/mi n/1.73 m2 CREATININE (test code = 0.8 mg/dL 0.6-1.3 N CREAT) CALCIUM (test code = 9.2 mg/dL 8.0-10.5 N CA) PROTHROMBIN [id number] 13:35:00 Test Item Value Reference Range Interpretation Comments PROTHROMBIN TIME 10.9 SECONDS 9.3-12.9 N PATIENT (test code = PTP) INTERNATIONAL NORMAL 1.0 0.8-1.2 N TARGE T INR BY RATIO (test code = INDICATIO N Indication INR) INR1. Prophylax is of venous thrombos is 2.0 - 3.0 (orthoped ic surgery), Proph ylaxis of venous throm bosis (other than hig h-risk surgery), Treat ment of Deep Vein Thrombosis/Pulm onary Embolism, Preve ntion of systemic emb olism - Tissue heart va lves, Acute Myocardia l Infarction (to prevent systemic emboli sm), Valvular heart disease, Atrial Fibrillation, Bileaflet mecha nical valve in aortic position.2. Mec hanical prosthetic valv es (high risk), 2. 5 - 3.5 Presence of Lup us Anticoagulant o r Antiphospholipi d Antibodies, Pre vention of systemic emb olism - Acute Myocardia l Infarction (to prevent recurrent infar ct). THROMBOPLASTIN TIME [id number] 13:35:00 Test Item Value Reference Range Interpretation Comments THROMBOPLASTIN TIME 31.9 Seconds 25.0-39.5 N Therape utic Range: PARTIAL (test code = 50.4 - 88.3 Seconds PTT) Effective 05/28/2018 CBC W/AUTO [id number] 13:28:00 Test Item Value Reference Range Interpretation Comments WHITE BLOOD CELL (test code = 5.4 x10 3/uL 4.5-11.0 N WBC) RED BLOOD CELL (test code = 4.90 x10 6/uL 4.00-5.60 N RBC) HEMOGLOBIN (test code = HGB) 15.1 g/dL 12.5-16.9 N HEMATOCRIT (test code = HCT) 45.1 % 37.5-50.7 N MEAN CELL VOLUME (test code = 92.0 fL 81.0-99.0 N MCV) MEAN CELL HGB (test code = MCH) 30.8 pg 27.0-33.0 N MEAN CELL HGB CONCETRATION 33.5 g/dL 33.0-37.0 N (test code = MCHC) RED CELL DISTRIBUTION WIDTH CV 13.0 % 11.5-14.5 N (test code = RDW) RED CELL DISTRIBUTION WIDTH SD 44.4 fL 37.0-54.0 N (test code = RDW-SD) PLATELET COUNT (test code = 220 x10 3/uL 150-400 N PLT) MEAN PLATELET VOLUME (test code 10.4 fL 7.0-9.0 H = MPV) NEUTROPHIL % (test code = NT%) 49.0 % 56.0-77.0 L IMMATURE GRANULOCYTE % (test 0.4 % 0.0-2.0 N code = IG%) LYMPHOCYTE % (test code = LY%) 30.2 % 14.0-32.0 N MONOCYTE % (test code = MO%) 8.5 % 4.8-9.0 N EOSINOPHIL % (test code = EO%) 10.4 % 0.3-3.7 H BASOPHIL % (test code = BA%) 1.5 % 0.0-2.0 N NUCLEATED RBC % (test code = 0.0 % 0-0 N NRBC%) NEUTROPHIL # (test code = NT#) 2.64 x10 3/uL 2.0-7.6 N IMMATURE GRANULOCYTE # (test 0.02 x10 3/uL 0.00-0.03 N code = IG#) LYMPHOCYTE # (test code = LY#) 1.63 x10 3/uL 1.0-3.8 N MONOCYTE # (test code = MO#) 0.46 x10 3/uL 0.1-0.8 N EOSINOPHIL # (test code = EO#) 0.56 x10 3/uL 0.0-0.2 H BASOPHIL # (test code = BA#) 0.08 x10 3/uL 0.0-0.2 N NUCLEATED RBC # (test code = 0.00 x10 3/uL 0.0-0.1 N NRBC#) MANUAL DIFF REQUIRED (test code NO = MDIFF) - XR CHEST 2 [id number] 00:00:00 [facility] QUINTANILLALOYAYO Rosas CESIA : 1955 Sex: M FAX: Barb Lopez [place]: St: PRE FAX: Fabio Ponce [phone] Name: YAYO MAK [facility] : 1955 Age/S: 66/M [address] [place] [address] Unit #: [id number] Loc: [place] Her[place] [address] Phys: Barb Lopez DIRECTOR OF INTERCOLLEGIATE ATHLETICS Acct: [id number] Dis Date: Status: PRE IN PHONE #: [phone] Exam Date: 12/06/2021 1431 FAX #: [phone] Reason: PREOP EXAMS: CPT CODE: [id number] XR CHEST 2 V 18002 PROCEDURE INFORMATION: Exam: XR Chest Exam date and time: 12/06/2021 2:31 PM Age: 66 years old Clinical indication: Pre-operative exam; Respiratory screening exam; Additional info: Preop TECHNIQUE: Imaging protocol: Radiologic exam of the chest. Views: 2 views. PA and Lateral COMPARISON: No relevant prior studies available. FINDINGS: Lungs: No consolidation or infiltrate. Pleural spaces: No pleural effusion. No pneumothorax. Heart/Mediastinum: The cardiomediastinal silhouette is within normal limits. Pulmonary vasculature is unremarkable. Bones/joints: No acute abnormality seen.IMPRESSION: No acute cardiopulmonary findings at 5576 Reported and signed by: Adrianna Moran M.D. CC: Barb Coppola DIRECTOR OF INTERCOLLEGIATE ATHLETICS; Miley Bowen MD Technologist: RT Moriah(R) Trnscrd Date/Time/B y: 12/06/2021 (2065) : By: [email or web address] Orig Print D/T: S: 12/06/2021 (7722) PAGE 1 Signed Report
[2022-06-21] MEDS ORDERED: MORPHINE 4 MG/ML SYR ONE (23:11)
[2022-06-21] MEDS ORDERED: ONDANSETRON 4 MG/2 ML VIAL ONE (23:11)
[2022-06-21] MEDS ORDERED: FAMOTIDINE 20 MG/2 ML VIAL IV ONE (23:12)
[2022-06-21] MEDS ORDERED: NA CHLORIDE 0.9% 1,000 ML ONE ×2 (23:12→23:58)
[2022-06-22] MEDS ORDERED: HYDRALAZINE HCL 20 MG/ML VIAL ONE ×2 (00:14→01:18)
[2022-06-22 00:27] LABS: Absolute Lymphocytes (CBC) 2.3 K/uL (0.7-4.9); Hematocrit 44.3 % (39.6-49.0); Lymphocytes % 27.2 % (15.3-44.8); MCV 92.3 fL (80-100); MPV 8.6 fL (7.6-11.3); Protime INR 0.98
[2022-06-22 00:35] LABS: Albumin 3.6 g/dL (3.4-5.0); Bilirubin Direct 0.2 mg/dL (0-0.2); Bilirubin Indirect, Calculated 0.2 (0.2-0.8); Bilirubin Total 0.4 mg/dL (0.2-1.0); Potassium 3.8 mEq/L (3.5-5.1); Protein, Total 7.7 g/dL (6.4-8.2); Troponin High Sensitivity 7.8 pg/mL (<58.9)
[2022-06-22 00:38] LABS: Specific Gravity 1.019 (1.005-1.030); Urine Bacteria None Seen /HPF (<20); Urine Bilirubin NEGATIVE (Negative); Urine Blood Negative (Negative); Urine Clarity Clear (Clear); Urine Color Light-Yellow (Yellow); Urine Glucose NEGATIVE (Negative); Urine Mucus Slight /HPF (None Seen); Urine Protein TRACE (Negative); Urine RBC <5 /HPF (None Seen); Urine Urobilinogen Normal (Normal); Urine pH 6.5 (5.0-7.0)
[2022-06-22] MEDS ORDERED: NA CHLORIDE 0.9% 100 ML ONE (00:42)
[2022-06-22] MEDS ORDERED: PIPERACIL/TAZO 3.375 GM VIAL IV ONE (00:42)
--- NOTE | 2022-06-22 02:33 | ER ---
Nurse's Notes [facility] Name: Darrin Whiting Age: 67 yrs Sex: Male : 1955 Arrival Date: 06/21/2022 Time: 22:03 Bed 2 Private MD: Diagnosis: Epigastric abdominal tenderness;Other specified abdominal hernia with obstruction, without gangrene;Other intestinal obstruction-small bowel , internal hernia;Essential (primary) hypertension Presentation: 06/21 22:10 Chief complaint: Patient states: abdominal pain that started today. denies vomiting. as6 Coronavirus screen: At this time, the client does not indicate any symptoms associated with coronavirus-19. Ebola Screen: No symptoms or risks identified at this time. Initial Sepsis Screen: Does the patient meet any 2 criteria? No. Patient's initial sepsis screen is negative. Does the patient have a suspected source of infection? No. Patient's initial sepsis screen is negative. Risk Assessment: Do you want to hurt yourself or someone else? Patient reports no desire to harm self or others. Onset of symptoms was June 21, 2022. 22:10 Method Of Arrival: Ambulatory as6 22:10 Acuity: BETHEL 3 as6 Historical: - Allergies: 22:15 No Known Allergies; as6 - PMHx: 22:15 Hypertension; as6 - PSHx: 22:15 r leg; as6 - Immunization history:: Client reports receiving the 2nd dose of the Covid vaccine, moderna. - Social history:: Smoking status: Patient denies any tobacco usage or history of. Patient uses street drugs, marijuana. - Family history:: not pertinent. - Hospitalizations: : No recent hospitalization is reported. Screenin:15 Abuse screen: Denies threats or abuse. Denies injuries from another. Nutritional ha1 screening: No deficits noted. Tuberculosis screening: No symptoms or risk factors identified. 06/22 03:43 [facility] ED Fall Risk Assessment (Adult) History of falling in the last 3 months, jj7 including since admission No falls in past 3 months (0 pts) Confusion or Disorientation No (0 pts) Intoxicated or Sedated No (0 pts) Impaired Gait No (0 pts) Mobility Assist Device Used No (0 pt) Altered Elimination No (0 pt) Score/Fall Risk Level 0 - 2 = Low Risk Maintained a safe environment. Assessment: 06/21 22:15 General: Appears uncomfortable, Behavior is calm, cooperative. Pain: Complains of pain ha1 in left lower quadrant Pain does not radiate. Pain at worst was 10 out of 10 on a pain scale. Quality of pain is described as crampy, pressure, Pain began suddenly, 2 hours ago. Is intermittent. Neuro: Level of Consciousness is awake, alert, obeys commands, Oriented to person, place, time, situation. Cardiovascular: Capillary refill < 3 seconds Patient's skin is warm and dry. Respiratory: Airway is patent Respiratory effort is even, unlabored, Respiratory pattern is regular, symmetrical. GI: Abdomen is flat, non-distended, Bowel sounds present X 4 quads. Abd is soft and non tender. : No signs and/or symptoms were reported regarding the genitourinary system. Musculoskeletal: Circulation, motion, and sensation intact. Range of motion: intact in all extremities. 06/22 02:50 Reassessment: PT REFUSE NGT. jj7 Vital Signs: 06/21 22:10 BP 214 / 97; Pulse 53; Resp 18 S; Temp 98.3(O); Pulse Ox 99% on R/A; Weight 74.84 kg as6 (R); Height 5 ft. 5 in. (R); Pain 08/21; 23:00 BP 199 / 117; Pulse 59; Resp 19 S; Pulse Ox 98% on R/A; ha1 06/22 00:00 BP 208 / 104; Pulse 50; Resp 19; Pulse Ox 100% on R/A; ha1 00:45 BP 177 / 83; Pulse 68; Resp 18 S; Pulse Ox 98% on R/A; ha1 01:28 BP 160 / 75; Pulse 72; Resp 14; Pulse Ox 99% ; jj7 01:52 BP 167 / 87; Pulse 74; Resp 16; Pulse Ox 97% ; jj7 02:40 BP 178 / 98; Pulse 85; Resp 18; Pulse Ox 97% ; jj7 02:55 BP 141 / 77; Pulse 76; Resp 17; Pulse Ox 97% ; jj7 03:33 BP 150 / 76; Pulse 75; Resp 18; Pulse Ox 97% ; jj7 06/21 22:10 Body Mass Index 27.46 (74.84 kg, 165.1 cm) as6 06/21 22:10 Pain Scale: Adult as6 ED Course: 06/21 22:08 Patient arrived in ED. ja2 22:15 Triage completed. as6 22:15 Arm band placed on. as6 22:15 Patient has correct armband on for positive identification. Placed in gown. Bed in low ha1 position. Call light in reach. Side rails up X 1. 22:30 Missed attempt(s): 20 gauge in right antecubital area. ha1 22:49 Jayden Burnett MD is Attending Physician. roxi 23:15 Inserted saline lock: 22 gauge in left hand, using aseptic technique. ha1 23:40 XRAY Chest (1 view) In Process Unspecified. EDMS 23:47 CT Abd/Pelvis - IV Contrast Only In Process Unspecified. [facility]OK 06/22 00:05 Erlinda Barnes, MARLENE is Primary Nurse. ha1 00:06 Basic Metabolic Panel Sent. ha1 00:06 CBC with Diff Sent. ha1 00:06 LFT's Sent. ha1 00:06 Magnesium Sent. ha1 01:15 Inserted saline lock: 20 gauge in right antecubital area, using aseptic technique. oe 02:28 Mohamud Fenton MD is Hospitalizing Provider. roxi 02:48 Darren Heck MD is Hospitalizing Provider. la1 03:36 No provider procedures requiring assistance completed. jj7 03:36 Patient admitted, IV remains in place. jj7 Administered Medications: 06/21 23:05 Drug: NS 0.9% IV 1000 ml Route: IV; Rate: 125 ml/hr; Site: left hand; 06/22 03:45 Follow up: IV Status: Infusion continued upon admission j 06/21 23:27 Drug: Ondansetron IVP 4 mg Route: IVP; Site: left hand; 06/22 03:45 Follow up: Response: No adverse reaction; Nausea is decreased j 06/21 23:30 Drug: Famotidine IVP 20 mg Route: IVP; Site: left hand; 06/22 03:44 Follow up: Response: No adverse reaction [facility] 06/21 23:33 Drug: morphine IVP or IV 4 mg Route: IVP; Infused Over: 4 mins; Site: left hand; 06/22 03:45 Follow up: Response: Pain is decreased jj7 00:10 Drug: hydrALAZINE IVP 10 mg {Note: BP 208/104.} Route: IVP; Site: left antecubital; 03:44 Follow up: Response: Blood pressure is lowered jj7 00:46 Drug: Piperacillin-Tazobactam IVPB 3.375 grams Route: IVPB; Infused Over: 60 mins; ha1 Site: left hand; 01:50 Follow up: IV Status: Completed infusion jj7 01:54 Drug: hydrALAZINE IVP 10 mg Route: IVP; Site: right antecubital; jj7 03:46 Follow up: Response: Blood pressure is lowered jj7 Medication: 03:36 VIS not applicable for this client. jj7 Outcome: 02:32 Decision to Hospitalize by Provider. roxi 03:36 Admitted to Med/surg jj7 03:36 Condition: stable 03:42 Admitted to Med/surg accompanied by tech, via wheelchair, Report called to FERNANDO ROSARIO jj7 03:56 Patient left the ED. jj7 Signatures: Dispatcher [employer] EDMS Barb Cintron, Jayden Galvan RN, MD MD cha Attema, Lee, COMPUTER SUPPORT SPECIALIST INSTRUCTOR-C COMPUTER SUPPORT SPECIALIST INSTRUCTOR-Cla1 Vladislav Chacon Jessica ja2 Slawson, Ashby, RN RN as6 Erlinda Barnes RN RN ha1 Yoly Lagos RN RN jj7
--- NOTE | 2022-06-22 02:33 | EDPHYS ---
Physician Documentation [facility] Name: Darrin Whiting Age: 67 yrs Sex: Male : 1955 Arrival Date: 06/21/2022 Time: 22:03 Bed 2 Private MD: ED Physician Jayden Burnett HPI: 06/22 00:19 This 67 yrs old Male presents to ER via Ambulatory with complaints of roxi Abdominal Pain. 00:19 The patient presents with abdominal pain in the upper abdomen, in the left upper rxoi quadrant, abdominal distention in the upper abdomen, in the lower abdomen. Onset: The symptoms/episode began/occurred yesterday. The symptoms do not radiate. Associated signs and symptoms: none. The symptoms are described as crampy, steady. Modifying factors: The symptoms are alleviated by nothing, the symptoms are aggravated by nothing. Severity of pain: At its worst the pain was moderate in the emergency department the pain is unchanged. The patient has experienced similar episodes in the past, a few times. Historical: - Allergies: 06/21 22:15 No Known Allergies; as6 - PMHx: 22:15 Hypertension; as6 - PSHx: 22:15 r leg; as6 - Immunization history:: Client reports receiving the 2nd dose of the Covid vaccine, moderna. - Social history:: Smoking status: Patient denies any tobacco usage or history of. Patient uses street drugs, marijuana. - Family history:: not pertinent. - Hospitalizations: : No recent hospitalization is reported. ROS: 06/22 00:21 Constitutional: Negative for fever, chills, and weight loss, Eyes: Negative for injury, roxi pain, redness, and discharge, ENT: Negative for injury, pain, and discharge, Neck: Negative for injury, pain, and swelling, Cardiovascular: Negative for chest pain, palpitations, and edema, Respiratory: Negative for shortness of breath, cough, wheezing, and pleuritic chest pain, Back: Negative for injury and pain, : Negative for injury, bleeding, discharge, and swelling, MS/Extremity: Negative for injury and deformity, Skin: Negative for injury, rash, and discoloration, Neuro: Negative for headache, weakness, numbness, tingling, and seizure, Psych: Negative for depression, anxiety, suicide ideation, homicidal ideation, and hallucinations, Allergy/Immunology: Negative for hives, rash, and allergies, Endocrine: Negative for neck swelling, polydipsia, polyuria, polyphagia, and marked weight changes, Hematologic/Lymphatic: Negative for swollen nodes, abnormal bleeding, and unusual bruising. Abdomen/GI: Positive for abdominal pain, nausea, of the left upper quadrant. Exam: 00:21 Constitutional: This is a well developed, well nourished patient who is awake, alert, roxi and in no acute distress. Head/Face: Normocephalic, atraumatic. Eyes: Pupils equal round and reactive to light, extra-ocular motions intact. Lids and lashes normal. Conjunctiva and sclera are non-icteric and not injected. Cornea within normal limits. Periorbital areas with no swelling, redness, or edema. ENT: Nares patent. No nasal discharge, no septal abnormalities noted. Tympanic membranes are normal and external auditory canals are clear. Oropharynx with no redness, swelling, or masses, exudates, or evidence of obstruction, uvula midline. Mucous membranes moist. Neck: Trachea midline, no thyromegaly or masses palpated, and no cervical lymphadenopathy. Supple, full range of motion without nuchal rigidity, or vertebral point tenderness. No Meningismus. Chest/axilla: Normal chest wall appearance and motion. Nontender with no deformity. No lesions are appreciated. Cardiovascular: Regular rate and rhythm with a normal S1 and S2. No gallops, murmurs, or rubs. Normal PMI, no JVD. No pulse deficits. Respiratory: Lungs have equal breath sounds bilaterally, clear to auscultation and percussion. No rales, rhonchi or wheezes noted. No increased work of breathing, no retractions or nasal flaring. Back: No spinal tenderness. No costovertebral tenderness. Full range of motion. Male : Normal genitalia with no discharge or lesions. Skin: Warm, dry with normal turgor. Normal color with no rashes, no lesions, and no evidence of cellulitis. MS/ Extremity: Pulses equal, no cyanosis. Neurovascular intact. Full, normal range of motion. Neuro: Awake and alert, GCS 15, oriented to person, place, time, and situation. Cranial nerves II-XII grossly intact. Motor strength 5/5 in all extremities. Sensory grossly intact. Cerebellar exam normal. Normal gait. Psych: Awake, alert, with orientation to person, place and time. Behavior, mood, and affect are within normal limits. 00:21 ECG was reviewed by the Attending Physician. 00:21 Abdomen/GI: Inspection: distension, Bowel sounds: normal, Palpation: moderate abdominal tenderness, in the left upper quadrant. Vital Signs: 06/21 22:10 BP 214 / 97; Pulse 53; Resp 18 S; Temp 98.3(O); Pulse Ox 99% on R/A; Weight 74.84 kg as6 (R); Height 5 ft. 5 in. (R); Pain 08/21; 23:00 BP 199 / 117; Pulse 59; Resp 19 S; Pulse Ox 98% on R/A; ha1 06/22 00:00 BP 208 / 104; Pulse 50; Resp 19; Pulse Ox 100% on R/A; ha1 00:45 BP 177 / 83; Pulse 68; Resp 18 S; Pulse Ox 98% on R/A; ha1 01:28 BP 160 / 75; Pulse 72; Resp 14; Pulse Ox 99% ; jj7 01:52 BP 167 / 87; Pulse 74; Resp 16; Pulse Ox 97% ; jj7 02:40 BP 178 / 98; Pulse 85; Resp 18; Pulse Ox 97% ; jj7 02:55 BP 141 / 77; Pulse 76; Resp 17; Pulse Ox 97% ; jj7 03:33 BP 150 / 76; Pulse 75; Resp 18; Pulse Ox 97% ; jj7 06/21 22:10 Body Mass Index 27.46 (74.84 kg, 165.1 cm) as6 06/21 22:10 Pain Scale: Adult as6 MDM: 06/21 22:49 Patient medically screened. [facility] 06/22 00:23 Differential diagnosis: Cholelithiasis, gastroesophageal reflux disease, Mesenteric roxi ischemia or infarction, myocardia ischemia or infarction, non-specific abd pain, pancreatitis, Peptic Ulcer Disease, Peritonitis, Prostatitis, Ureterolithiasis, urinary tract infection. Data reviewed: vital signs, nurses notes, lab test result(s), EKG, radiologic studies, CT scan, plain films. Consideration of Admission/Observation Escalation of care including admission/observation considered. I considered the following discharge prescriptions or medication management in the emergency department Medications were administered in the Emergency Department. See MAR. Test considered but Not performed: Ultrasound no abd usg. Care significantly affected by the following chronic conditions: Hypertension. 06/21 22:50 Order name: Basic Metabolic Panel; Complete Time: 00:57 [facility] 06/21 22:50 Order name: CBC with Diff; Complete Time: 00:57 [facility] 06/21 22:50 Order name: LFT's; Complete Time: 00:57 [facility] 06/21 22:50 Order name: Magnesium; Complete Time: 00:57 [facility] 06/21 22:50 Order name: NT PRO-BNP; Complete Time: 00:57 [facility] 06/21 22:50 Order name: PT-INR; Complete Time: 00:57 [facility] 06/21 22:50 Order name: Troponin HS; Complete Time: 00:57 [facility] 06/21 22:50 Order name: Lipase; Complete Time: 00:57 [facility] 06/21 22:50 Order name: Urinalysis w/ reflexes; Complete Time: 00:57 [facility] 06/22 02:27 Order name: Lactate w/ 2H reflex if indic.; Complete Time: 03:20 [facility] 06/21 22:50 Order name: XRAY Chest (1 view) [facility] 06/21 22:50 Order name: CT Abd/Pelvis - IV Contrast Only [facility] 06/21 22:50 Order name: EKG; Complete Time: 22:51 [facility] 06/21 22:50 Order name: Cardiac monitoring; Complete Time: 00:06 [facility] 06/21 22:50 Order name: EKG - Nurse/Tech; Complete Time: 00:06 [facility] 06/21 22:50 Order name: IV Saline Lock; Complete Time: 23:39 [facility] 06/21 22:50 Order name: Labs collected and sent; Complete Time: 23:39 [facility] 06/21 22:50 Order name: O2 Per Protocol; Complete Time: 23:39 [facility] 06/21 22:50 Order name: O2 Sat Monitoring; Complete Time: 23:39 [facility] 06/22 02:19 Order name: Nasogastric Tube [facility] EC:21 Rate is 50 beats/min. Rhythm is regular. QRS [place] is Normal. [place] interval is normal. QRS roxi interval is normal. QT interval is normal. No Q waves. T waves are Normal. No ST changes noted. Clinical impression: Sinus bradycardia and No evidence of ischemia. Interpreted by me. Reviewed by me. Administered Medications: 06/21 23:05 Drug: NS 0.9% IV 1000 ml Route: IV; Rate: 125 ml/hr; Site: left hand; [facility] 06/22 03:45 Follow up: IV Status: Infusion continued upon admission j7 06/21 23:27 Drug: Ondansetron IVP 4 mg Route: IVP; Site: left hand; [facility] 06/22 03:45 Follow up: Response: No adverse reaction; Nausea is decreased j 06/21 23:30 Drug: Famotidine IVP 20 mg Route: IVP; Site: left hand; [facility] 06/22 03:44 Follow up: Response: No adverse reaction j7 06/21 23:33 Drug: morphine IVP or IV 4 mg Route: IVP; Infused Over: 4 mins; Site: left hand; [facility] 06/22 03:45 Follow up: Response: Pain is decreased j7 00:10 Drug: hydrALAZINE IVP 10 mg {Note: BP 208/104.} Route: IVP; Site: left antecubital; 03:44 Follow up: Response: Blood pressure is lowered j7 00:46 Drug: Piperacillin-Tazobactam IVPB 3.375 grams Route: IVPB; Infused Over: 60 mins; [facility] Site: left hand; 01:50 Follow up: IV Status: Completed infusion j7 01:54 Drug: hydrALAZINE IVP 10 mg Route: IVP; Site: right antecubital; j7 03:46 Follow up: Response: Blood pressure is lowered j7 Disposition Summary: 06/22/22 02:32 Hospitalization Ordered Hospitalization Status: Inpatient Admission roxi [facility] Condition: Fair roxi Problem: new roxi Symptoms: are unchanged roxi Bed/Room Type: Standard roxi Provider: Darren Heck(06/22/22 02:48) la1 Room Assignment: [facility](06/22/22 03:27) Diagnosis - Epigastric abdominal tenderness roxi - Other specified abdominal hernia with obstruction, without gangrene roxi - Other intestinal obstruction - small bowel , internal hernia roxi - Essential (primary) hypertension roxi Forms: - Medication Reconciliation Form roxi - SBAR form roxi Signatures: Dispatcher [employer] Barb Jimenez RN RN kl Anderson, Corey, MD MD cha Attema, Lee, FNP-C WIRE COINER-Cla1 Freda Mg, RN RN cg Abraham Jennings RN RN as6 Erlinda Barnes, RN RN ha1 Yoly Lagos RN RN jj7 Corrections: (The following items were deleted from the chart) 02:48 02:32 Mohamud Fenton cha 03:04 02:19 Abdomen 1 View (KUB)+RAD.RAD.BRZ ordered. EDMS EDMS 03:27 02:32 roxi narvaez
--- NOTE | 2022-06-22 03:36 | P.HP ---
Certification for Inpatient Patient admitted to: Inpatient With expected LOS: >2 Midnights Patient will require the following post-hospital care: None Practitioner: I am a practitioner with admitting privileges, knowledge of patient current condition, hospital course, and medical plan of care. Services: Services provided to patient in accordance with Admission requirements found in Title 42 Section 412.3 of the Code of Federal Regulations <Mark Jones - Last Filed: 06/22/22 03:32> Patient History Date of Service: 06/22/22 Reason for admission: SBO History of Present Illness: 67-year-old male with history of hypertension presents emergency department for abdominal pain which she reports began around 1600 today. He denies any vomiting or constipation last bowel movement was this morning and normal. He had abdominal surgery performed approximately 6 to 7 months ago at an outside hospital, he cannot clearly tell me what kind of surgery he had his one small periumbilical incision which is well-healed noted on exam. His labs are unremarkable, CT was performed which showed findings compatible with mechanical small bowel obstruction, concern for possible closed-loop obstruction with internal hernia, wall thickening may indicate component of ischemia. Wall thickening of the sigmoid colon. Findings compatible with nonspecific colitis. ED physician spoke with general surgery on-call who recommended admission, will see patient. Patient will be admitted on IV antibiotics and n.p.o., he refused NGT. - Past Medical/Surgical History Diabetic: No -: Hypertension -: Abdominal surgery Psychosocial/ Personal History: Patient lives at home with family - Family History Family History: Reviewed- Non-Contributory - Social History Smoking Status: Never smoker Alcohol use: Yes CD- Drugs: No Caffeine use: Yes Place of Residence: Home <Mark Jones - Last Filed: 06/22/22 03:32> Date of Service: 06/22/22 <Darren Heck - Last Filed: 06/22/22 20:52> Allergies No Known Allergies Allergy (Verified 12/30/13 17:26) Home Medications: Lisinopril [Zestril] 1 tab PO DAILY 06/22/22 Review of Systems 10-point ROS is otherwise unremarkable Gastrointestinal: Abdominal Pain <Mark Jones - Last Filed: 06/22/22 03:32> Physical Examination - Physical Exam General: Alert, In no apparent distress, Oriented x3 HEENT: Atraumatic, PERRLA, Mucous membr. moist/pink, EOMI, Sclerae nonicteric Neck: Supple, 2+ carotid pulse no bruit, No LAD, Without JVD or thyroid abnormality Respiratory: Clear to auscultation bilaterally, Normal air movement Cardiovascular: Regular rate/rhythm, Normal S1 S2 Gastrointestinal: Normal bowel sounds, No rebound, No guarding, Tenderness (Moderate left upper/left lower quadrant tenderness) Musculoskeletal: No tenderness, Tenderness Integumentary: No rashes Neurological: Normal gait, Normal speech, Normal strength at 5/5 x4 extr, Normal tone, Normal affect Lymphatics: No axilla or inguinal lymphadenopathy - Studies Laboratory Data (last 24 hrs) 06/21/22 23:48: PT 10.8, INR 0.98 06/21/22 23:48: WBC 8.50, Hgb 14.6, Hct 44.3, Plt Count 237 06/21/22 23:48: Sodium 136, Potassium 3.8, BUN 17, Creatinine 0.81, Glucose 103, Magnesium 2.0, Total Bilirubin 0.4, AST 30, ALT 28, Alkaline Phosphatase 76, Lipase 45 <Mark Jones - Last Filed: 06/22/22 03:32> - Studies Laboratory Data (last 24 hrs) 06/21/22 23:48: PT 10.8, INR 0.98 06/21/22 23:48: WBC 8.50, Hgb 14.6, Hct 44.3, Plt Count 237 06/21/22 23:48: Sodium 136, Potassium 3.8, BUN 17, Creatinine 0.81, Glucose 103, Magnesium 2.0, Total Bilirubin 0.4, AST 30, ALT 28, Alkaline Phosphatase 76, Lipase 45 <Darren Heck - Last Filed: 06/22/22 20:52> Assessment and Plan - Plan Assessment: Mechanical small bowel obstruction Hypertension Plan: Mechanical small bowel obstruction N.p.o., IVF, antibiotics, as needed pain medication/antiemetics. Patient refused NGT. General surgery notified while patient was in the emergency department. Appreciate further input from general surgery. Hypertension Patient was initially significantly hypertensive in the ED, he reports he takes a daily blood pressure medication but he is not sure what kind, responding well to IV hydralazine at this time. Will need to be strictly n.p.o. for now, will give as needed hydralazine. Restart home medications when appropriate. DVT PPX: SCD Code status: Full Discharge Plan: Home Plan to discharge in: Greater than 2 days - Advance Directives Does patient have a Living Will: No Does patient have a Durable POA for Healthcare: No - Code Status/Comfort Care Code Status Assessed: Yes (Full code) Critical Care: No Time Spent Managing Pts Care (In Minutes): 55 <Mark Jones - Last Filed: 06/22/22 03:32> - Plan Patient seen and examined on rounds this morning. Reports feeling much better. Abdomen less distended no nausea/vomiting no BM, no flatus since before admission Dr. Ovalles consulted KUB ordered - showing concerns for obstruction Dr. Ovalles reviewed [facility] radiology, suspect more enteritis than SBO ice chips now advance to clears if tolerates updated daughter at bedside <Darren Heck - Last Filed: 06/22/22 20:52>
[2022-06-22] MEDS ORDERED: HYDROMORPHONE HCL 1 MG/ML INJ IV PRN (03:57)
[2022-06-22] MEDS ORDERED: ONDANSETRON 4 MG/2 ML VIAL IV PRN (03:57)
[2022-06-22] MEDS ORDERED: HYDRALAZINE HCL 20 MG/ML VIAL IV PRN (03:57)
[2022-06-22] MEDS: NA CHLORIDE 0.9% 1,000 ML IV SCH ×4 (04:00→19:09)
[2022-06-22 04:25] VITALS: BMI 27.4
--- NOTE | 2022-06-22 08:12 | CON ---
Date of Consultation: 06/22/2022 Reason For Consultation: Small bowel obstruction. History Of Present Illness: The patient is a 67-year-old gentleman, who came to the emergency room w ith acute onset of abdominal pain after eating lunch, pain started around 4 o'clock. He denies any v omiting, but did have nausea and last bowel movement was normal and was yesterday morning. He is pas sing gas. He has not vomited. He had an abdominal surgery performed for what appears to be sigmoid diverticulitis in outside hospital. He does not sure where and he does not know why he had the surge ry. He presumed it was for diverticulitis. No sore throat, runny nose, cough, headaches, or dizzine ss. No chest pain. No fever or chills. Review of Systems: Otherwise unremarkable. Past Medical History: Hypertension and recent abdominal surgery for diverticulitis. Allergies: NO ALLERGIES. Social History: The patient does not smoke. Drinks occasionally. Family History: Noncontributory. Physical Examination: Vital Signs: Stable. He is afebrile. General: He is awake, alert. Head and Neck: Cranial nerves 2 through 12 are grossly within normal limits. No neck masses. No JV D. Throat clear. Neck supple. Chest: Clear. Heart: S1 and S2. Abdomen: Soft. Positive bowel sounds, hypoactive. Nondistended, minimal tenderness. No rebound. No rigidity. No guarding. No abdominal wall hernia appreciated. Extremity: Adequately perfused. Nontender. Neuro: Nonfocal. Laboratory Data: Reviewed, essentially within normal limits. CT of the abdomen and pelvis, read as the following. Findings compatible with mechanical small bowel obstruction, dilated loops of bowel i n the left mid abdomen, which demonstrates edematous thickened wall, there is interloop edema and per ipheral location of dilated loops of bowel, findings concerning for closed loop obstruction with poss ible internal hernia, wall thickening may indicate a component of ischemia. Wall thickening of the s igmoid colon, findings consistent with nonspecific colitis. Wall thickening of the urinary bladder, this could be seen with cystitis and diverticulosis without evidence of acute diverticulitis. Assessment: A 67-year-old gentleman with possible small bowel obstruction. It is not clear at this time whether it is complete or not and whether the patient has improved since being admitted as he is basically asymptomatic this morning. We will get an x-ray this morning. We will examine him again and determine if clinically the patient is improving. If he does, then we will begin with liquid t and advance slowly. If not, he may need surgical intervention. Plan of care discussed with Dr. Vickie casas. MODESTA/DION Voice ID: [id number] Report ID: [id number]
--- NOTE | 2022-06-22 08:41 | RAD REPORT ---
EXAM DESCRIPTION: RAD - Abdomen W Erect - 06/22/2022 8:31 am CLINICAL HISTORY: f/u SBO COMPARISON: Abdomen Pelvis W Contrast dated 06/22/2022 TECHNIQUE: Single AP view of the abdomen. FINDINGS: Dilated small bowel loops, most prominent in the left upper quadrant, measuring 4 centimet er in greatest caliber. No air-fluid levels, free air, or pneumatosis. No suspicious calcifications. No significant bony abnormality. IMPRESSION: Dilated small bowel loops concerning for obstruction.
[2022-06-22] MEDS: PIPER TAZO 3.375 GM in NA CHLORIDE 0.9% 100 ML IV SCH ×2 (10:37→18:34)
--- NOTE | 2022-06-22 17:16 | RAD REPORT ---
EXAM DESCRIPTION: CT - Abdomen Pelvis W Contrast - 06/22/2022 7:02 am ADDENDUM #1 Urgent finding reported to Dr. Burnett at 06/22/2022 2:11 AM CDT Electronically signed by: Stevan Galindo 06/22/2022 2:23 AM CDT End of Addendum EXAM DESCRIPTION: Abdomen Pelvis W Contrast CLINICAL HISTORY: ABD PAIN COMPARISON: None Available. TECHNIQUE: CT of the abdomen and pelvis performed following IV administration of iodinated contras t. This exam was performed according to our departmental dose-optimization program, which includes au tomated exposure control, adjustment of the mA and/or kV according to patient size and/or use of iter ative reconstruction technique. FINDINGS: Lung Bases: The visualized lung bases are clear. Bones: Mild multilevel endplate spondylosis, disc height narrowing, and facet arthropathy. Abdomen: Liver: The liver has normal size and density. No intrahepatic biliary dilatation. Posterior right hep atic granuloma. Gallbladder: No calcified gallstones. Spleen, Pancreas, and Adrenal Glands: The spleen, pancreas, and adrenal glands are unremarkable. Kidneys: No hydronephrosis or obstructing calculus. Small bilateral renal cysts. No follow-up horacio ging for these structures. Vasculature: Aortoiliac atherosclerosis. IVC is unremarkable. The portal vein is patent. The proxim al visceral and renal arteries are patent. Stomach: Small hiatal hernia. Other: No free intraperitoneal air. Small amount of free fluid. Pelvis: Bladder: Wall thickening of the urinary bladder. Bowel: Dilated loops of bowel in the left abdomen, which demonstrates a thickened wall thickening. There is interloop edema and peripheral location of dilated loops of bowel. Findings concerning for c losed-loop obstruction with possible internal hernia. Wall thickening may indicate a component of isc hemia. Scattered diverticula colon. Rectosigmoid anastomosis. Partial colectomy. Wall thickening of t he sigmoid colon. Appendix: Normal appendix. Pelvis: Enlarged prostate. IMPRESSION: 1. Findings compatible with mechanical small bowel obstruction. Dilated loops of bowel in the left abdomen, some of which demonstrates edematous thickened wall. There is interloop edema a nd peripheral location of dilated loops of bowel. Findings concerning for closed-loop obstruction wit h possible internal hernia. Wall thickening may indicate a component of ischemia. 2. Wall thickening of the sigmoid colon. Findings compatible with nonspecific colitis. 3. Enlarged prostate. 4. Wall thickening of the urinary bladder. This could be seen with cystitis. 5. Diverticulosis without evidence of acute diverticulitis. Electronically signed by: Stevan Galindo 06/22/2022 2:11 AM CDT Due to temporary technical issues with the PACS/Fluency reporting system, reports are being signed by the in house radiologists without review as a courtesy to insure prompt reporting. The interpreting radiologist is fully responsible for the content of the report.
--- NOTE | 2022-06-22 17:19 | RAD REPORT ---
EXAM DESCRIPTION: RAD - Chest Single View - 06/21/2022 11:38 pm CLINICAL HISTORY: ABDOMINAL DISTENTION COMPARISON: None. FINDINGS: Single frontal radiograph view of the chest. Cardiomediastinal silhouette: Normal size and contour. Lungs: No consolidation, pneumothorax, or pleural effusion. Bones: Mild spurring of the acromioclavicular joints. Mild endplate spondylosis of the spine. Upper abdomen: No abnormality identified. IMPRESSION: 1. No acute pulmonary process identified. Electronically signed by: Stevan Galindo 06/21/2022 11:47 PM CDT Due to temporary technical issues with the PACS/Fluency reporting system, reports are being signed by the in house radiologists without review as a courtesy to insure prompt reporting. The interpreting radiologist is fully responsible for the content of the report.
[2022-06-22] MEDS ORDERED: ACETAMINOPHEN 325 MG TABLET PO ONE (19:14)
[2022-06-23] MEDS: PIPER TAZO 3.375 GM in NA CHLORIDE 0.9% 100 ML IV SCH ×3 (02:20→17:00)
[2022-06-23] MEDS: NA CHLORIDE 0.9% 1,000 ML IV SCH ×4 (02:25→20:41)
[2022-06-23 05:21] LABS: Absolute Lymphocytes (CBC) 1.5 K/uL (0.7-4.9); Hematocrit 42.2 % (39.6-49.0); Lymphocytes % 27.1 % (15.3-44.8); MCV 92.2 fL (80-100); MPV 8.6 fL (7.6-11.3); RBC Red Blood Cell Count 4.58 M/uL (4.33-5.43)
[2022-06-23 05:37] LABS: Albumin 3.1 g/dL (3.4-5.0); Potassium 3.6 mEq/L (3.5-5.1); Protein, Total 6.5 g/dL (6.4-8.2)
--- NOTE | 2022-06-23 07:28 | P.PN ---
Date of Service: 06/23/22 Subjective: Feeling better this morning some mild discomfort/pain in abdomen, but manageable without pain medication at this time no nausea / vomiting / diarrhea no new / worsening problems ROS: 10 point ROS as noted above, otherwise negative Physical Exam: GEN: Alert, oriented, NAD HEENT: Normal conjunctiva, sclera anicteric CV: Regular rate and rhythm, no edema Pulm: Nonlabored respirations on room air ABD: Soft, nondistended, mild LUQ/LLQ tenderness vitals reviewed Problem List: Mechanical small bowel obstruction vs enteritis Hypertension Mechanical small bowel obstruction vs enteritis Abdomen xray 06/22 - Dilated small bowel loops concerning for obstruction KUB xray 06/23 - Persistent though modestly improved small bowel dilatation continue antibiotics pain medication/antiemetics as needed advance to clears, soft diet in AM if tolerates General surgery consulted Clear liquids - monitor and continue to advance if tolerable Dr. Ovalles feels no surgical intervention needed as this time PO abx on discharge Hypertension Patient was initially significantly hypertensive in the ED, he reports he takes a daily blood pressure medication but he is not sure what kind, responding well to IV hydralazine at this time. hydralazine as needed. Restart home medications as appropriate. VTE: SCD, ambulating Code: Full Dispo: Home 24hrs
[2022-06-23] MEDS ORDERED: POTASSIUM 25 MEQ EFFERV TAB PO ONE (08:00)
--- NOTE | 2022-06-23 08:48 | P.PN ---
Date of Service: 06/23/22 Subjective: Patient is awake and alert. Patient is tolerating clear liquid diet. Patient is passing gas and having bowel movements. Patient states that he has no pain. He complains of minimal discomfort in the left side of the abdomen. Objective: Vital signs stable, afebrile. White count is normal. Abdomen: Soft, nondistended, nontender, positive bowel sounds Assessment: Likely enteritis, rule out inflammatory bowel disease such as Crohn's Plan: Check x-ray, if okay advance diet to full liquid and then GI soft. Patient can be discharged either later today or tomorrow morning based on his clinical response. There is no need for any surgical intervention. Patient is to follow-up with GI service upon discharge. Gururo and yl should be fine on discharge. CC:
--- NOTE | 2022-06-23 09:28 | RAD REPORT ---
EXAM DESCRIPTION: RAD - Abdomen 1 View (KUB) - 06/23/2022 9:18 am CLINICAL HISTORY: f/u SBO COMPARISON: Abdomen Pelvis W Contrast dated 06/22/2022; Abdomen W Erect dated 06/22/2022 FINDINGS: Dilated small bowel demonstrating some interval decompression compared with yesterday. For example, a small bowel loop in the left upper quadrant measures 3.7 cm, previously 4 cm. Some of the central small bowel loops are also less distended. No acute osseous abnormality.Visualized lungs are unremarkable.No abnormal calcifications. IMPRESSION: Persistent though modestly improved small bowel dilatation.
[2022-06-23 22:59] VITALS: O2SAT 98
[2022-06-24] MEDS: PIPER TAZO 3.375 GM in NA CHLORIDE 0.9% 100 ML IV SCH ×2 (00:48→08:16)
[2022-06-24 04:33] LABS: Absolute Lymphocytes (CBC) 1.7 K/uL (0.7-4.9); Hematocrit 43.7 % (39.6-49.0); Lymphocytes % 26.8 % (15.3-44.8); MCV 92.1 fL (80-100); MPV 8.8 fL (7.6-11.3); RBC Red Blood Cell Count 4.75 M/uL (4.33-5.43)
[2022-06-24 04:40] LABS: Potassium 3.6 mEq/L (3.5-5.1)
--- NOTE | 2022-06-24 07:48 | RAD REPORT ---
EXAM DESCRIPTION: RAD - Abdomen 1 View (KUB) - 06/24/2022 5:43 am CLINICAL HISTORY: f/u SBO COMPARISON: Abdomen 1 View (KUB) dated 06/23/2022 FINDINGS: Nonobstructive bowel gas pattern. Dilated small bowel no longer identified. No acute osseo us abnormality.Visualized lungs are unremarkable.No abnormal calcifications. IMPRESSION: Nonobstructive bowel gas pattern. Dilated small bowel no longer identified.
--- NOTE | 2022-06-24 08:13 | P.DS ---
Admission Date: 06/22/22 Discharge Date: 06/24/22 Disposition: ROUTINE DISCHARGE Discharge Condition: GOOD Reason for Admission: SBO Consultations: General Surgery - Dr. Ovalles Brief History of Present Illness: 67yo M, PMH: hypertension Patient presents emergency department for abdominal pain which she reports began around 1600 today. He denies any vomiting or constipation last bowel movement was this morning and normal. He had abdominal surgery performed approximately 6 to 7 months ago at an outside hospital, he cannot clearly tell me what kind of surgery he had his one small periumbilical incision which is well-healed noted on exam. His labs are unremarkable, CT was performed which showed findings compatible with mechanical small bowel obstruction, concern for possible closed- loop obstruction with internal hernia, wall thickening may indicate component of ischemia. Wall thickening of the sigmoid colon. Findings compatible with nonspecific colitis. ED physician spoke with general surgery on-call who recommended admission, will see patient. Patient will be admitted on IV antibiotics and n.p.o., he refused NGT. Hospital Course: Problem List: Mechanical small bowel obstruction vs enteritis Hypertension h/o diverticulosis Patient presented with abdominal pain. Initial CT was performed which showed findings compatible with mechanical small bowel obstruction, concern for possible closed-loop obstruction with internal hernia, wall thickening may indicate component of ischemia. Wall thickening of the sigmoid colon. General Surgery was consulted. Dr. Ovalles reviewed imaging with radiologist and felt it was due more to enteritis. Patient was medically managed with bowel rest, antibiotics, IVF. His symptoms greatly improved and his diet was advanced to GI soft. Follow up xray revealed resolution of presumed obstruction. He remained afebrile. He was deemed stable for discharge, and is to complete a 2 week course of oral antibiotics. Follow up: PCP 3-5 days Gastrointestinal - within ~1-2 weeks Physical Exam: GEN: Alert, oriented, NAD HEENT: Normal conjunctiva, sclera anicteric CV: Regular rate and rhythm, no edema Pulm: Nonlabored respirations on room air ABD: Soft, nondistended, nontender Vital Signs/Physical Exam: Temp Pulse Resp BP Pulse Ox 97.8 F 63 18 120/69 96 06/24/22 04:00 06/24/22 04:00 06/24/22 04:00 06/24/22 04:00 06/24/22 04:00 Laboratory Data at Discharge: WBC 6.20 thou/uL (4.3-10.9) 06/24/22 03:54 Hgb 14.6 g/dL (13.6-17.9) 06/24/22 03:54 Hct 43.7 % (39.6-49.0) 06/24/22 03:54 Plt Count 214 thou/uL (152-406) 06/24/22 03:54 PT 10.8 SECONDS (9.5-12.5) 06/21/22 23:48 INR 0.98 06/21/22 23:48 Sodium 138 mEq/L (136-145) 06/24/22 03:54 Potassium 3.6 mEq/L (3.5-5.1) 06/24/22 03:54 BUN 10 mg/dL (7-18) 06/24/22 03:54 Creatinine 0.79 mg/dL (0.70-1.30) 06/24/22 03:54 Glucose 100 mg/dL (74-106) 06/24/22 03:54 Magnesium 2.0 mg/dL (1.6-2.4) 06/21/22 23:48 Total Bilirubin 1.0 mg/dL (0.2-1.0) 06/23/22 04:52 AST 22 U/L (15-37) 06/23/22 04:52 ALT 23 U/L (16-61) 06/23/22 04:52 Alkaline Phosphatase 61 U/L (45-117) 06/23/22 04:52 Lipase 45 U/L (13-75) 06/21/22 23:48 Home Medications: Lisinopril [Zestril] 1 tab PO DAILY 06/22/22 Ciprofloxacin HCl [Cipro 500 MG Tablet] 500 mg PO BID 10 Days #20 tab 06/24/22 metroNIDAZOLE [Flagyl] 500 mg PO Q8H 10 Days #30 tab 06/24/22 New Medications: Ciprofloxacin HCl [Cipro 500 MG Tablet] 500 mg PO BID 10 Days #20 tab metroNIDAZOLE [Flagyl] 500 mg PO Q8H 10 Days #30 tab Physician Discharge Instructions: Patient presented with abdominal pain. Initial CT was performed which showed findings compatible with mechanical small bowel obstruction, concern for possible closed-loop obstruction with internal hernia, wall thickening may indicate component of ischemia. Wall thickening of the sigmoid colon. General Surgery was consulted. Dr. Ovalles reviewed imaging with radiologist and felt it was due more to enteritis. Patient was medically managed with bowel rest, antibiotics, IVF. His symptoms greatly improved and his diet was advanced to GI soft. Follow up xray revealed resolution of presumed obstruction. He remained afebrile. He was deemed stable for discharge, and is to complete a course of oral antibiotics. Follow up: PCP 3-5 days Gastrointestinal - within ~1-2 weeks Followup: NONE,NONE [Primary Care Provider] - Time spent managing pt's care (in minutes): 45
[2022-06-24] MEDS ORDERED: POTASSIUM 25 MEQ EFFERV TAB PO ONE (09:00)
[2022-06-24 09:30] VITALS: BP 157/77; TEMP 97.6
--- NOTE | 2022-06-26 11:48 | EKG ---
Test Date: 2022-06-22 Test Time: 00:01:50 [employer]: SANTANA MEASUREMENT RESULTS: Intervals: Rate: 50 TX: 162 QRSD: 84 QT: 442 QTc: 402 [place]: P: 44 TX: 162 QRS: 80 T: 71 INTERPRETIVE STATEMENTS: Sinus bradycardia Otherwise normal ECG No previous ECG available for comparison Electronically Signed On 06-26-22 11:42:05 CDT by Sudhakar Cheng
== END 2022-06-24 12:55 | disposition home or self-care (01) | DRG 392 ==
LOC: ER 22:03 → ERHOLD 06-22 03:17 → 4TH 06-22 03:35
PROVIDERS: ADMIT Hospitalist; ATTEND Hospitalist
DX: K52.9 Noninfective gastroenteritis and colitis, unspecified (principal); K40.30 Unilateral inguinal hernia, with obstruction, without gangrene, not specified as recurrent; K55.9 Vascular disorder of intestine, unspecified; I10 Essential (primary) hypertension; Z79.899 Other long term (current) drug therapy
CPT/HCPCS: 36415; 71045; 74018; 74019; 74177; 80048; 80053; 80076; 81001; 83605; 83690; 83735; 83880; 84484; 85025; 85610; 93005; 99285; J0360; J1170; J2405; J2543; J7030; Q9967

== ENCOUNTER 2024-12-03 08:44 | Observation (INO) | payer OTHER, SELFPAY ==
--- NOTE | 2024-12-03 09:08 | RAD REPORT ---
EXAM: Chest Single View HISTORY: 69 years Male ABDOMINAL DISTENTION COMPARISON: 06/21/2022 FINDINGS: LUNGS/PLEURA: The lungs are clear. No pleural effusions or pneumothorax. No pulmonary edema. CARDIAC/MEDIASTINUM: The cardiac silhouette is within normal limits. UPPER ABDOMEN: No significant abnormality. BONES: No acute abnormality. LINES/TUBES/OTHER: N/A IMPRESSION: No evidence of acute cardiopulmonary disease.
[2024-12-03] MEDS ORDERED: NA CHLORIDE 0.9% 500 ML ONE (09:51)
[2024-12-03] MEDS ORDERED: FAMOTIDINE 20 MG/2 ML VIAL IV ONE (09:51)
[2024-12-03] MEDS ORDERED: ONDANSETRON 4 MG/2 ML VIAL ONE ×2 (09:51→13:32)
[2024-12-03 09:59] LABS: Absolute Lymphocytes (CBC) 0.9 K/uL (0.7-4.9); Hematocrit 44.8 % (39.6-49.0); Hemoglobin 15.1 g/dL (13.6-17.9); MCH 32.0 pg (27.0-35.0); MCHC 33.8 g/dL (32.0-36.0); MCV 94.7 fL (80-100); MPV 9.0 fL (7.6-11.3); Nucleated RBC Absolute Count 0.0 (0-0); Nucleated Red Blood Cells % 0.0 % (0-0); RBC Red Blood Cell Count 4.73 M/uL (4.33-5.43); White Blood Count 5.40 thou/uL (4.3-10.9)
[2024-12-03 10:11] LABS: PT Prothrombin Time 11.4 SECONDS (10-13.0); Protime INR 1.01
[2024-12-03 10:20] LABS: ALT/SGPT 32.0 U/L (16-61); AST/SGOT 23.0 U/L (15-37); Albumin 3.4 g/dL (3.4-5.0); Albumin/Globulin Ratio 0.9 (1.1-1.8); Alkaline Phosphatase 75.0 U/L (45-117); Anion Gap 8.4 mEq/L (5.0-15.0); BUN Blood Urea Nitrogen 19.0 mg/dL (7-18); Bilirubin Indirect, Calculated 0.6 mg/dL (0.2-0.8); Globulin 4.0 g/dL (2.3-3.5); Glucose Level 97.0 mg/dL (74-106); Lipase 76.0 U/L (13-75); Magnesium 1.8 mg/dL (1.6-2.4); NT PRO-BNP 146.0 pg/mL (<125); Potassium 4.4 mEq/L (3.5-5.1); Troponin High Sensitivity 6.7 pg/mL (<58.9)
--- NOTE | 2024-12-03 11:10 | RAD REPORT ---
Abdomen Exam Limited: 12/03/2024 10:46 AM CLINICAL HISTORY: ABD PAIN STUDY: Limited right upper quadrant ultrasound of abdomen. COMPARISON: 06/22/2022 FINDINGS: Liver: Limited evaluation. Hepatic steatosis noted. Bile ducts: No intrahepatic or extrahepatic biliary ductal dilatation. Common bile duct measures 3 mm. Gallbladder: Normal. IMPRESSION: Negative for cholelithiasis or acute cholecystitis.Hepatic steatosis.
--- NOTE | 2024-12-03 11:15 | RAD REPORT ---
EXAMINATION: Abdomen Pelvis W Contrast CLINICAL INDICATION: Male, 69 years old.ABDOMINAL DISTENTION TECHNIQUE: CT abdomen and pelvis was performed, after the administration of IV contrast, as per [facility] protocol. Axial, sagittal and coronal reconstructions were obtained. One or more of the following dose reduction techniques were used: Automated exposure control, adjustment of the mA and/o r kV according to patient size, and/or iterative reconstruction. Unless otherwise specified, incidental findings do not require dedicated imaging follow-up. [id number]. COMPARISON: 06/22/2022 FINDINGS: LOWER CHEST: No acute process identified. No significant pericardial effusion. Mild circumferential t hickening of the distal esophagus which could reflect esophagitis. UPPER GI: No significant abnormality. LIVER: Hepatic steatosis, but otherwise unremarkable. GALLBLADDER/BILE DUCTS: No biliary ductal dilatation.? PANCREAS: No mass, ductal dilation, or marion-pancreatic fluid. SPLEEN: Unremarkable. ADRENALS: No adrenal masses. KIDNEYS AND URETERS: No hydronephrosis though mild bilateral hydroureter. Low density and/or too smal l to characterize renal lesions which are statistically benign. ABDOMINAL AORTA AND OTHER VESSELS: Moderate atherosclerotic changes without aortic aneurysm. PERITONEUM: No abnormal free fluid. No free air. LYMPH NODES: No pathologic lymphadenopathy. ABDOMINAL WALL: Narrow neck fat-containing ventral hernia to the right of the umbilicus with strandin g within the hernia as well as the underlying omentum. The neck measures approximately 1.8 cm. The herniated fat measures approximately 4.2 x 2.2 x 4.5 cm. Fat-containing abdominal hernia. SMALL BOWEL/COLON: Colorectal anastomosis. No bowel obstruction. Moderate stool ascending transverse colon. Normal appendix. URINARY BLADDER: Underdistended but grossly unremarkable. REPRODUCTIVE ORGANS: No pathologic process. MUSCULOSKELETAL: Multilevel degenerative changes in the spine. No acute fracture. ADDITIONAL FINDINGS: None. IMPRESSION: Narrow neck fat-containing ventral hernia with fat stranding both within the hernia sac and in the singer bjacent omentum suspicious for incarceration/strangulation. If not reducible, recommend surgical consultation.
--- NOTE | 2024-12-03 13:20 | ER ---
Nurse's Notes [facility] Name: Darrin Whiting Age: 69 yrs Sex: Male : 1955 Arrival Date: 12/03/2024 Time: 08:44 Bed 16 Private MD: Diagnosis: Other and unspecified ventral hernia with obstruction, without gangrene-REDUCED Presentation: 12/03 09:13 Chief complaint: Patient states: RUQ PAIN x2 DAYS, NO NAUSEA/VOMITING, SLIGHT LOCAL bp DISTENSION. Coronavirus screen: At this time, the client does not indicate any symptoms associated with coronavirus-19. Ebola Screen: No symptoms or risks identified at this time. Initial Sepsis Screen: Does the patient meet any 2 criteria? No. Patient's initial sepsis screen is negative. Does the patient have a suspected source of infection? No. Patient's initial sepsis screen is negative. Risk Assessment: Do you want to hurt yourself or someone else? Patient reports no desire to harm self or others. Onset of symptoms is unknown. 09:13 Method Of Arrival: Ambulatory bp 09:13 Acuity: BETHEL 3 bp Triage Assessment: 09:15 General: Appears in no apparent distress. uncomfortable, Behavior is calm, cooperative, bp appropriate for age. Pain: Complains of pain in right upper quadrant. EENT: No deficits noted. Neuro: No deficits noted. Cardiovascular: No deficits noted. Respiratory: No deficits noted. GI: Reports upper abdominal pain. : No signs and/or symptoms were reported regarding the genitourinary system. Derm: No deficits noted. Musculoskeletal: No deficits noted. Historical: - Allergies: 09:15 No Known Allergies; bp - PMHx: 09:15 Hypertension; bp - PSHx: 09:15 r leg; bp - Immunization history:: Adult Immunizations up to date. - Infectious Disease History:: Denies. - Social history:: Smoking status: Patient denies any tobacco usage or history of. - Family history:: not pertinent. Screenin:[address] [facility] ED Fall Risk Assessment (Adult) History of falling in the last 3 months, cc6 including since admission No falls in past 3 months (0 pts) Confusion or Disorientation No (0 pts) Intoxicated or Sedated No (0 pts) Impaired Gait No (0 pts) Mobility Assist Device Used No (0 pt) Altered Elimination No (0 pt) Score/Fall Risk Level 0 - 2 = Low Risk Oriented to surroundings, Maintained a safe environment, Hourly rounding (assess needs \T\ fall precautionary measures) done. Abuse screen: Denies threats or abuse. Denies injuries from another. Nutritional screening: No deficits noted. Tuberculosis screening: No symptoms or risk factors identified. Assessment: 09:20 General: Appears in no apparent distress. comfortable, Behavior is calm, cooperative, cc6 appropriate for age. Pain: Complains of pain in right upper quadrant and right lower quadrant Pain does not radiate. Pain currently is 5 out of 10 on a pain scale. Quality of pain is described as sharp. Neuro: Level of Consciousness is awake, alert, obeys commands, Oriented to person, place, time, situation. Cardiovascular: Capillary refill < 3 seconds Patient's skin is warm and dry. Rhythm is sinus bradycardia. Respiratory: Airway is patent Respiratory effort is even, unlabored, Respiratory pattern is regular, symmetrical. GI: Bowel sounds present X 4 quads. Abd is soft and non tender X 4 quads. : No signs and/or symptoms were reported regarding the genitourinary system. EENT: No signs and/or symptoms were reported regarding the EENT system. Derm: No signs and/or symptoms reported regarding the dermatologic system. 10:40 Reassessment: Patient and/or family updated on plan of care and expected duration. Pain cc6 level reassessed. Patient is alert, oriented x 3, equal unlabored respirations, skin warm/dry/pink. Vital Signs: 09:13 BP 186 / 96; Pulse 55; Resp 16; Temp 98; Pulse Ox 99% ; bp 12:18 BP 159 / 86; Pulse 51; Resp 18; Pulse Ox 98% on R/A; cc6 ED Course: 08:48 Patient arrived in ED. im 08:48 Sarah Valverde PA-C is PHCP. sb4 08:49 Jayden Burnett MD is Attending Physician. roxi 09:07 XRAY Chest (1 view) In Process Unspecified. EDMS 09:15 Triage completed. bp 09:15 Arm band placed on. bp 09:20 Bed in low position. Call light in reach. Provided Education on: use of call light. cc6 09:24 Kourtney Sheppard, MARLENE is Primary Nurse. cc6 09:49 Inserted saline lock: 20 gauge in right antecubital area, using aseptic technique. bc6 Flushed with 10 mL NS. 10:02 Basic Metabolic Panel Sent. cc6 10:02 CBC with Diff Sent. cc6 10:02 LFT's Sent. cc6 10:02 Magnesium Sent. cc6 10:02 NT PRO-BNP Sent. cc6 10:02 PT-INR Sent. cc6 10:02 Troponin HS Sent. cc6 10:48 US Abdomen Limited In Process Unspecified. EDMS 10:49 CT Abd/Pelvis - IV Contrast Only In Process Unspecified. EDMS 13:19 Darren Heck MD is Hospitalizing Provider. roxi 13:47 Urine collected: clean catch specimen, cloudy. me1 Administered Medications: 10:00 Drug: Famotidine IVP 20 mg IVP once; dilute with 10 mL 0.9% NaCl; give over 2 minutes cc6 Route: IVP; Site: right antecubital; 13:46 Follow up: Response: No adverse reaction me1 10:00 Drug: NS 0.9% IV 500 ml 500 ml IV at 1 bolus once; to be given as a bolus over 30 cc6 minutes Volume: 500 ml; Route: IV; Rate: 1 bolus; Site: right antecubital; 13:36 Follow up: Response: No adverse reaction; IV Status: Completed infusion me1 10:00 Drug: Ondansetron IVP 4 mg IVP once; over 2 minutes Route: IVP; Site: right antecubital;cc6 13:46 Follow up: Response: No adverse reaction; Nausea is decreased ne1 13:44 Drug: NS 0.9% IV 1000 ml IV at 125 ml/hr once Route: IV; Rate: 125 ml/hr; Site: right me1 antecubital; 13:44 Drug: fentaNYL (PF) IVP 50 mcg IVP once Route: IVP; Site: right antecubital; me1 14:19 Follow up: Response: No adverse reaction; RASS: Alert and Calm (0) cc6 13:44 Drug: Ondansetron IVP 4 mg IVP once; over 2 minutes Route: IVP; Site: right antecubital;me1 14:19 Follow up: Response: No adverse reaction cc6 Outcome: 13:19 Decision to Hospitalize by Provider. roxi 15:25 Patient left the ED. ll1 Signatures: Dispatcher [employer] Jayden Mcdonough MD MD cha Peltier, Brian, RN RN Arlet Caicedo RN RN ll1 Sarah Valverde PA-C PA-C sb4 Razia Thomas 6 Jesusita Garcia Michelle RN RN me1 Kourtney Sheppard RN RN cc6
--- NOTE | 2024-12-03 13:20 | EDPHYS ---
Physician Documentation [facility] Name: Darrin Whiting Age: 69 yrs Sex: Male : 1955 Arrival Date: 12/03/2024 Time: 08:44 Bed 16 Private MD: ED Physician Jayden Burnett HPI: 12/03 10:28 This 69 yrs old Male presents to ER via Ambulatory with complaints of roxi Abdominal Swelling. 10:28 The patient presents with abdominal pain in the upper abdomen, in the lower abdomen, roxi abdominal distention in the upper abdomen, in the lower abdomen. Onset: The symptoms/episode began/occurred last night. The symptoms do not radiate. Associated signs and symptoms: none. The symptoms are described as crampy, intermittent. Modifying factors: The symptoms are alleviated by nothing, the symptoms are aggravated by nothing. Severity of pain: At its worst the pain was moderate in the emergency department the pain is unchanged. The patient has experienced similar episodes in the past, a few times. Historical: - Allergies: 09:15 No Known Allergies; bp - PMHx: 09:15 Hypertension; bp - PSHx: 09:15 r leg; bp - Immunization history:: Adult Immunizations up to date. - Infectious Disease History:: Denies. - Social history:: Smoking status: Patient denies any tobacco usage or history of. - Family history:: not pertinent. ROS: 10:28 Constitutional: Negative for fever, chills, and weight loss, Eyes: Negative for injury, roxi pain, redness, and discharge, ENT: Negative for injury, pain, and discharge, Neck: Negative for injury, pain, and swelling, Cardiovascular: Negative for chest pain, palpitations, and edema, Respiratory: Negative for shortness of breath, cough, wheezing, and pleuritic chest pain, Back: Negative for injury and pain, : Negative for injury, bleeding, discharge, and swelling, MS/Extremity: Negative for injury and deformity, Skin: Negative for injury, rash, and discoloration, Neuro: Negative for headache, weakness, numbness, tingling, and seizure, Psych: Negative for depression, anxiety, suicide ideation, homicidal ideation, and hallucinations, Allergy/Immunology: Negative for hives, rash, and allergies, Endocrine: Negative for neck swelling, polydipsia, polyuria, polyphagia, and marked weight changes, Hematologic/Lymphatic: Negative for swollen nodes, abnormal bleeding, and unusual bruising, 10:28 Abdomen/GI: Positive for abdominal pain, of the right upper quadrant and right lower quadrant, Exam: 10:28 Constitutional: This is a well developed, well nourished patient who is awake, alert, roxi and in no acute distress. Head/Face: Normocephalic, atraumatic. Eyes: Pupils equal round and reactive to light, extra-ocular motions intact. Lids and lashes normal. Conjunctiva and sclera are non-icteric and not injected. Cornea within normal limits. Periorbital areas with no swelling, redness, or edema. ENT: Nares patent. No nasal discharge, no septal abnormalities noted. Tympanic membranes are normal and external auditory canals are clear. Oropharynx with no redness, swelling, or masses, exudates, or evidence of obstruction, uvula midline. Mucous membranes moist. Neck: Trachea midline, no thyromegaly or masses palpated, and no cervical lymphadenopathy. Supple, full range of motion without nuchal rigidity, or vertebral point tenderness. No Meningismus. Chest/axilla: Normal chest wall appearance and motion. Nontender with no deformity. No lesions are appreciated. Cardiovascular: Regular rate and rhythm with a normal S1 and S2. No gallops, murmurs, or rubs. Normal PMI, no JVD. No pulse deficits. Respiratory: Lungs have equal breath sounds bilaterally, clear to auscultation and percussion. No rales, rhonchi or wheezes noted. No increased work of breathing, no retractions or nasal flaring. Back: No spinal tenderness. No costovertebral tenderness. Full range of motion. Male : Normal genitalia with no discharge or lesions. Skin: Warm, dry with normal turgor. Normal color with no rashes, no lesions, and no evidence of cellulitis. MS/ Extremity: Pulses equal, no cyanosis. Neurovascular intact. Full, normal range of motion., bilateral aka Neuro: Awake and alert, GCS 15, oriented to person, place, time, and situation. Cranial nerves II-XII grossly intact. Motor strength 5/5 in all extremities. Sensory grossly intact. Cerebellar exam normal. Normal gait. Psych: Awake, alert, with orientation to person, place and time. Behavior, mood, and affect are within normal limits. 10:28 Abdomen/GI: Inspection: distension, that is mild, Bowel sounds: normal, Palpation: abdomen is soft and non-tender, Liver: no appreciated palpable abnormalities, Hernia: not appreciated, 13:20 ECG was reviewed by the Attending Physician. [facility] Vital Signs: 09:13 BP 186 / 96; Pulse 55; Resp 16; Temp 98; Pulse Ox 99% ; bp 12:18 BP 159 / 86; Pulse 51; Resp 18; Pulse Ox 98% on R/A; cc6 MDM: 08:49 Medical Screening Exam initiated roxi 10:34 Differential diagnosis: AAA, appendicitis, bowel obstruction, cholecystitis, roxi Cholelithiasis, diverticulitis, gastritis, Herpes Zoster, Mesenteric ischemia or infarction, non-specific abd pain, pancreatitis, Peptic Ulcer Disease, Perf. Duodenal Ulcer, Perf. Gastric Ulcer, Peritonitis, Prostatitis, Pyelonephritis, Testicular Torsion, Ureterolithiasis, urinary tract infection. Data reviewed: vital signs, nurses notes, lab test result(s), EKG, radiologic studies, plain films. Consideration of Admission/Observation Escalation of care including admission/observation considered. I considered the following discharge prescriptions or medication management in the emergency department Medications were administered in the Emergency Department. See MAR. Independent interpretation of the following test(s) in the Emergency Department EKG: See my EKG interpretation above. Test considered but Not performed: MRI: no mrcp. Historians other than the Patient: Daughter/Son: daughter well informed. Care significantly affected by the following chronic conditions: Hypertension, Obesity. Counseling: I had a detailed discussion with the patient and/or guardian regarding the historical points, exam findings, and any diagnostic results supporting the discharge/admit diagnosis, lab results, radiology results. 12/03 08:53 Order name: Basic Metabolic Panel; Complete Time: 12:48 [facility] 12/03 08:53 Order name: CBC with Diff; Complete Time: 10:20 [facility] 12/03 08:53 Order name: LFT's; Complete Time: 12:48 [facility] 12/03 08:53 Order name: Magnesium; Complete Time: 12:48 [facility] 12/03 08:53 Order name: NT PRO-BNP; Complete Time: 12:48 [facility] 12/03 08:53 Order name: PT-INR; Complete Time: 10:20 [facility] 12/03 08:53 Order name: Troponin HS; Complete Time: 12:48 [facility] 12/03 08:53 Order name: Lipase; Complete Time: 12:48 [facility] 12/03 08:53 Order name: UA Rfx Gamal Cult if indicated [facility] 12/03 14:16 Order name: CBC with Automated Diff EDMS 12/03 14:16 Order name: CBC with Automated Diff EDMS 12/03 14:16 Order name: CBC with Automated Diff EDMS 12/03 14:16 Order name: Comprehensive Metabolic Panel EDMS 12/03 14:16 Order name: Comprehensive Metabolic Panel EDMS 12/03 14:16 Order name: Comprehensive Metabolic Panel EDMS 12/03 08:53 Order name: XRAY Chest (1 view); Complete Time: 10:20 [facility] 12/03 08:53 Order name: CT Abd/Pelvis - IV Contrast Only; Complete Time: 12:48 [facility] 12/03 10:20 Order name: US Abdomen Limited; Complete Time: 12:48 [facility] 12/03 08:53 Order name: EKG; Complete Time: 08:54 [facility] 12/03 08:53 Order name: Cardiac monitoring; Complete Time: 10:02 [facility] 12/03 08:53 Order name: EKG - Nurse/Tech; Complete Time: 10:02 [facility] 12/03 08:53 Order name: IV Saline Lock; Complete Time: 10:02 [facility] 12/03 08:53 Order name: Labs collected and sent; Complete Time: 10:02 [facility] 12/03 08:53 Order name: O2 Per Protocol; Complete Time: 10:02 [facility] 12/03 08:53 Order name: O2 Sat Monitoring; Complete Time: 10:02 [facility] EC:20 Rate is 50 beats/min. Rhythm is regular. QRS [place] is Normal. LA interval is normal. QRS roxi interval is normal. QT interval is normal. No Q waves. T waves are Normal. No ST changes noted. Clinical impression: Sinus bradycardia and No evidence of ischemia. Interpreted by me. Reviewed by me. Administered Medications: 10:00 Drug: Famotidine IVP 20 mg IVP once; dilute with 10 mL 0.9% NaCl; give over 2 minutes cc6 Route: IVP; Site: right antecubital; 13:46 Follow up: Response: No adverse reaction me1 10:00 Drug: NS 0.9% IV 500 ml 500 ml IV at 1 bolus once; to be given as a bolus over 30 cc6 minutes Volume: 500 ml; Route: IV; Rate: 1 bolus; Site: right antecubital; 13:36 Follow up: Response: No adverse reaction; IV Status: Completed infusion me1 10:00 Drug: Ondansetron IVP 4 mg IVP once; over 2 minutes Route: IVP; Site: right antecubital;cc6 13:46 Follow up: Response: No adverse reaction; Nausea is decreased me1 13:44 Drug: NS 0.9% IV 1000 ml IV at 125 ml/hr once Route: IV; Rate: 125 ml/hr; Site: right me1 antecubital; 13:44 Drug: fentaNYL (PF) IVP 50 mcg IVP once Route: IVP; Site: right antecubital; me1 14:19 Follow up: Response: No adverse reaction; RASS: Alert and Calm (0) cc6 13:44 Drug: Ondansetron IVP 4 mg IVP once; over 2 minutes Route: IVP; Site: right antecubital;me1 14:19 Follow up: Response: No adverse reaction cc6 Disposition Summary: 12/03/24 13:19 Hospitalization Ordered Notes: Hospitalization Status: Observation roxi Provider: Darren Heck cha Location: Telemetry/MedSurg (observation) roxi Condition: Stable roxi Problem: new roxi Symptoms: have improved roxi Bed/Room Type: Standard [facility] Room Assignment: 415(12/03/24 14:19) bd Diagnosis - Other and unspecified ventral hernia with obstruction, without gangrene - REDUCED roxi Forms: - Medication Reconciliation Form roxi - SBAR form roxi - Leadership Thank You Letter [facility] Critical care time excluding procedures: 13:19 Critical care time: Bedside Care: 25 minutes, Consultation: 10 minutes, Family roxi Intervention: 10 minutes. Total time: 45 minutes Signatures: Dispatcher [employer] EDMS Kaye Reynolds Corey, MD MD cha Peltier, Brian RN RN Kathy Le RN RN me1 Kourtney Sheppard RN RN cc6 Corrections: (The following items were deleted from the chart) 08:54 08:54 BASIC METABOLIC PANEL+C.LAB.BRZ ordered. EDMS EDMS 08:54 08:54 CBC+H.LAB.BRZ ordered. EDMS EDMS 08:54 08:54 HEPATIC FUNCTION+C.LAB.BRZ ordered. EDMS EDMS 08:54 08:54 MAGNESIUM+C.LAB.BRZ ordered. EDMS EDMS 08:54 08:54 PROBNP+C.LAB.BRZ ordered. EDMS EDMS 08:54 08:54 PROTIME (+INR)+COAG.LAB.BRZ ordered. EDMS EDMS 08:54 08:54 Troponin High Sensitivity+C.LAB.BRZ ordered. EDMS EDMS 08:54 08:54 LIPASE+C.LAB.BRZ ordered. EDMS EDMS 08:54 08:54 UA Rfx Gamal Cult if indicated+U.LAB.BRZ ordered. EDMS EDMS 10:20 10:20 Abdomen Limited+US.RAD.BRZ ordered. EDMS EDMS 14:19 13:19 roxi bd
[2024-12-03] MEDS ORDERED: FENTANYL CITR 100 MCG/2 ML ONE (13:31)
[2024-12-03] MEDS ORDERED: NA CHLORIDE 0.9% 1,000 ML ONE (13:32)
[2024-12-03 13:53] LABS: Urine Microscopic Reflex YN NO UMIC
[2024-12-03] MEDS ORDERED: ACETAMINOPHEN 325 MG TABLET PO PRN (14:12)
[2024-12-03] MEDS ORDERED: ONDANSETRON 4 MG/2 ML VIAL IV PRN (14:12)
[2024-12-03 15:55] VITALS: BMI 25.0
--- NOTE | 2024-12-03 16:03 | P.HP ---
Certification for Inpatient Patient admitted to: Observation With expected LOS: <2 Midnights Patient will require the following post-hospital care: None Practitioner: I am a practitioner with admitting privileges, knowledge of patient current condition, hospital course, and medical plan of care. Services: Services provided to patient in accordance with Admission requirements found in Title 42 Section 412.3 of the Code of Federal Regulations Patient History Date of Service: 12/03/24 Reason for admission: Ventral hernia History of Present Illness: 69-year-old otherwise healthy male presents the emergency department chief complaint of right periumbilical abdominal pain. He reports that he has had a hernia in the area for the last year or so but the pain became very bad last night and 2 today. Patient was evaluated in the emergency department his labs were significant for a normal white blood cell count, chemistries are unremarkable CT of the abdomen and pelvis was performed with IV contrast which revealed a narrow necked fat- containing ventral hernia with fat stranding both within the hernia sac and in the subjacent omentum suspicious for incarceration/strangulation. If not reducible recommend surgical consultation. ED physician was able to reduce the hernia easily at bedside. Abdominal ultrasound was also performed which was negative for cholelithiasis or cholecystitis. ED provider said to admit patient under observation. Allergies No Known Allergies Allergy (Verified 12/30/13 17:26) Home Medications: Lisinopril [Zestril] 1 tab PO DAILY 06/22/22 Ciprofloxacin HCl [Cipro 500 MG Tablet] 500 mg PO BID 10 Days #20 tab 06/24/22 metroNIDAZOLE [Flagyl] 500 mg PO Q8H 10 Days #30 tab 06/24/22 - Past Medical/Surgical History Has patient received pneumonia vaccine in the past: No Diabetic: No -: Hypertension -: divreticulitis -: Abdominal surgery -: rt leg fx repair Psychosocial/ Personal History: Patient lives at home with family - Family History Brother -: Heart disease, Hypertension, Cancer Sister -: Cancer - Social History Smoking Status: Never smoker Alcohol use: Yes CD- Drugs: No Caffeine use: Yes Place of Residence: Home Review of Systems 10-point ROS is otherwise unremarkable Gastrointestinal: Abdominal Pain Physical Examination - Physical Exam General: Alert, In no apparent distress, Oriented x3 HEENT: Atraumatic, PERRLA, EOMI Neck: Supple, 2+ carotid pulse no bruit, No LAD Respiratory: Clear to auscultation bilaterally, Normal air movement Cardiovascular: Regular rate/rhythm, Normal S1 S2 Gastrointestinal: Normal bowel sounds, No tenderness Musculoskeletal: No tenderness Integumentary: No rashes Neurological: Normal gait, Normal speech, Normal strength at 5/5 x4 extr, Normal affect - Studies Laboratory Data (last 24 hrs) 12/03/24 12/03/24 12/03/24 09:35 09:35 09:35 WBC 5.40 Hgb 15.1 Hct 44.8 Plt Count 202 PT 11.4 INR 1.01 Sodium 137 Potassium 4.4 BUN 19 H Creatinine 0.77 Glucose 97 Magnesium 1.8 Total Bilirubin 0.8 AST 23 ALT 32 Alkaline Phosphatase 75 Lipase 76 H Assessment and Plan - Plan Assessment: Ventral hernia-reduced Abdominal pain Plan: Ventral hernia-reduced Abdominal pain Symptoms improved after ED management/reduction of hernia No other acute findings noted on imaging Placed abdominal binder, observe overnight with serial abdominal exams Consider surgical consultation if there is further pain/hernia complications DVT PPX: Lovenox Code status: Full code Discharge Plan: Home Plan to discharge in: 24 Hours - Advance Directives Does patient have a Living Will: No Does patient have a Durable POA for Healthcare: No - Code Status/Comfort Care Code Status Assessed: Yes (Full code) Critical Care: No Time Spent Managing Pts Care (In Minutes): 70
[2024-12-03] MEDS: PNEUMOCOCCAL VACCINE 0.5 ML IMVAC ONE (17:00)
[2024-12-04] MEDS: HYDROCODONE/APAP 5/325 MG TAB PO PRN (00:50)
[2024-12-04 05:00] LABS: Absolute Lymphocytes (CBC) 1.9 K/uL (0.7-4.9); Hematocrit 44.5 % (39.6-49.0); Hemoglobin 14.8 g/dL (13.6-17.9); MCH 31.5 pg (27.0-35.0); MCHC 33.3 g/dL (32.0-36.0); MCV 94.6 fL (80-100); MPV 9.3 fL (7.6-11.3); Nucleated RBC Absolute Count 0.0 (0-0); Nucleated Red Blood Cells % 0.0 % (0-0); RBC Red Blood Cell Count 4.70 M/uL (4.33-5.43); White Blood Count 6.80 thou/uL (4.3-10.9)
[2024-12-04 05:21] LABS: ALT/SGPT 24.0 U/L (16-61); AST/SGOT 20.0 U/L (15-37); Albumin 3.2 g/dL (3.4-5.0); Albumin/Globulin Ratio 0.9 (1.1-1.8); Alkaline Phosphatase 62.0 U/L (45-117); Anion Gap 8.9 mEq/L (5.0-15.0); BUN Blood Urea Nitrogen 16.0 mg/dL (7-18); Globulin 3.5 g/dL (2.3-3.5); Glucose Level 102.0 mg/dL (74-106); Potassium 3.9 mEq/L (3.5-5.1)
[2024-12-04 08:14] VITALS: BP 178/77; TEMP 98.1
[2024-12-04] MEDS ORDERED: FLU (Fluarix) 25-26 (6MOS UP)/PF 45 MCG/0.5 ML Syringe IM ONE (08:30)
[2024-12-04] MEDS: POTASSIUM CL SA 10 MEQ TAB PO ONE (08:32)
[2024-12-04] MEDS: ENOXAPARIN 40 MG/0.4 ML SQ SCH (08:32)
[2024-12-04] MEDS ORDERED: PNEUMOCOCCAL VACCINE 0.5 ML IMVAC ONE (09:00)
--- NOTE | 2024-12-04 09:10 | P.DS ---
Admission Date: 12/03/24 Discharge Date: 12/04/24 Disposition: ROUTINE DISCHARGE Discharge Condition: GOOD Reason for Admission: Ventral hernia Brief History of Present Illness: 69-year-old otherwise healthy male presents the emergency department chief complaint of right periumbilical abdominal pain. He reports that he has had a hernia in the area for the last year or so but the pain became very bad last night and 2 today. Patient was evaluated in the emergency department his labs were significant for a normal white blood cell count, chemistries are unremarkable CT of the abdomen and pelvis was performed with IV contrast which revealed a narrow necked fat- containing ventral hernia with fat stranding both within the hernia sac and in the subjacent omentum suspicious for incarceration/strangulation. If not reducible recommend surgical consultation. ED physician was able to reduce the hernia easily at bedside. Abdominal ultrasound was also performed which was negative for cholelithiasis or cholecystitis. ED provider said to admit patient under observation. Hospital Course: Assessment: Ventral hernia-reduced Abdominal pain Patient presents to the hospital with significant mid/right abdominal pain. He was concerned about his appendix or his gallbladder. He did have a known hernia in the area as well which he has had for around [address] and ultrasound were negative for appendicitis or cholelithiasis/cholecystitis but it did show a narrow necked fat-containing ventral hernia to the right of the umbilicus with stranding within the hernia as well as the underlying omentum. The neck measures approximately 1.8 cm the herniated fat measures 4.2 x 2.2 x 4.5 cm. Fat-containing abdominal hernia. ER physician was able to reduce the hernia, patient was monitored in the hospital overnight, hernia remains reduced and patient's pain has significantly improved from yesterday. His labs are also unremarkable. He is stable for discharge and outpatient follow-up with PCP and general surgery as an outpatient. He was provided with abdominal binder and instructed to avoid heavy lifting greater than 10 pounds. Additionally was noted that his blood pressure was high and he was in sinus bradycardia in the high 40s to low 50s. He reports that his blood pressure is sometimes high and sometimes low, it seems that he takes his blood pressure medication and he is unsure of which 1 it is but he knows its 10 mg. He was instructed to follow-up with a local primary care doctor to establish himself and monitor his blood pressures outpatient, provided with a blood pressure recording log. Vital Signs/Physical Exam: Temp Pulse Resp BP Pulse Ox 98.1 F 49 L 16 178/77 H 99 12/04/24 08:00 12/04/24 08:00 12/04/24 08:00 12/04/24 08:00 12/04/24 08:00 General: Alert, In no apparent distress, Oriented x3 HEENT: Atraumatic, PERRLA Neck: Supple, JVD not distended Respiratory: Clear to auscultation bilaterally, Normal air movement Cardiovascular: Regular rate/rhythm, Normal S1 S2 Gastrointestinal: Normal bowel sounds, No tenderness Musculoskeletal: No tenderness Integumentary: No rashes Neurological: Normal speech, Normal affect Laboratory Data at Discharge: WBC 6.80 thou/uL (4.3-10.9) 12/04/24 04:15 Hgb 14.8 g/dL (13.6-17.9) 12/04/24 04:15 Hct 44.5 % (39.6-49.0) 12/04/24 04:15 Plt Count 190 thou/uL (152-406) 12/04/24 04:15 PT 11.4 SECONDS (10-13.0) 12/03/24 09:35 INR 1.01 12/03/24 09:35 Sodium 138 mEq/L (136-145) 12/04/24 04:15 Potassium 3.9 mEq/L (3.5-5.1) 12/04/24 04:15 BUN 16 mg/dL (7-18) 12/04/24 04:15 Creatinine 0.75 mg/dL (0.70-1.30) 12/04/24 04:15 Glucose 102 mg/dL (74-106) 12/04/24 04:15 Magnesium 1.8 mg/dL (1.6-2.4) 12/03/24 09:35 Total Bilirubin 0.6 mg/dL (0.2-1.0) 12/04/24 04:15 AST 20 U/L (15-37) 12/04/24 04:15 ALT 24 U/L (16-61) 12/04/24 04:15 Alkaline Phosphatase 62 U/L (45-117) 12/04/24 04:15 Lipase 76 U/L (13-75) H 12/03/24 09:35 Home Medications: NK [No Home Meds] 12/03/24 Physician Discharge Instructions: Patient presents to the hospital with significant mid/right abdominal pain. He was concerned about his appendix or his gallbladder. He did have a known hernia in the area as well which he has had for around [address] and ultrasound were negative for appendicitis or cholelithiasis/cholecystitis but it did show a narrow necked fat-containing ventral hernia to the right of the umbilicus with stranding within the hernia as well as the underlying omentum. The neck measures approximately 1.8 cm the herniated fat measures 4.2 x 2.2 x 4.5 cm. Fat-containing abdominal hernia. ER physician was able to reduce the hernia, patient was monitored in the hospital overnight, hernia remains reduced and patient's pain has significantly improved from yesterday. His labs are also unremarkable. He is stable for discharge and outpatient follow-up with PCP and general surgery as an outpatient. He was provided with abdominal binder and instructed to avoid heavy lifting greater than 10 pounds. Additionally was noted that his blood pressure was high and he was in sinus bradycardia in the high 40s to low 50s. He reports that his blood pressure is sometimes high and sometimes low, it seems that he takes his blood pressure medication and he is unsure of which 1 it is but he knows its 10 mg. He was instructed to follow-up with a local primary care doctor to establish himself and monitor his blood pressures outpatient, provided with a blood pressure recording log. Diet: Regular Activity: No lifting more than 10 lbs Followup: Geoffrey Perez MD [ACTIVE - CAN ADMIT] - 1-2 Weeks CHUCHO EDWARDS [ACTIVE - CAN ADMIT] - 1-2 Weeks NONE,NONE [Primary Care Provider] - Time spent managing pt's care (in minutes): 35
[2024-12-04 14:45] VITALS: O2SAT 99
== END 2024-12-04 10:25 | disposition home or self-care (01) ==
LOC: ER 08:44 → 4TH 14:11
PROVIDERS: ADMIT Hospitalist; ATTEND Hospitalist
DX: K43.9 Ventral hernia without obstruction or gangrene (principal); I10 Essential (primary) hypertension; R10.9 Unspecified abdominal pain
CPT/HCPCS: 36415; 71045; 74177; 76705; 80048; 80053; 80076; 81003; 83690; 83735; 83880; 84484; 85025; 85610; 93005; G0378; J1650; J2405; J3010; J7030; J7040; Q9967